=== PATIENT | female | born 1955 | race Caucasian/White ===

== ENCOUNTER → 2025-07-05 | Outpatient (CLI) | payer MEDICARE, OTHER, SELFPAY ==
[2025-07-05 09:58] LABS: Hematocrit 31.8 % (37-47); Hemoglobin 10.6 g/dL (12.0-15.0); Immature Granulocytes Count 0.010 X10^3/uL (0.0-0.0); Mean Corp Hgb Conc 33.3 g/dL (32-36); Mean Corpuscular Volume 88.6 fL (81-99); Mean Platelet Vol. 9.5 fl (6.2-12.0); NRBC Flagged by Analyzer 0 % (0-5); Platelet Count 208 K/mm3 (150-450); RBC Distribution Width CV 15.3 % (11.6-14.6); RBC Distribution Width SD 50.1 fl (35.1-43.9); Red Blood Count 3.59 M/mm3 (4.2-5.4); White Blood Count 6.4 K/mm3 (4.4-11.0)
[2025-07-05 10:54] LABS: AST(SGOT) 20 U/L (<=31); Alanine Aminotransfer ALT/SGPT 12 U/L (<=34); Albumin, Serum 4.7 g/dL (3.4-4.8); Alkaline Phosphatase 64 U/L (35-104); Anion Gap 15 (5-15); BUN 32 mg/dL (4-19); BUN/Creat Ratio 18.8 RATIO (10-20); Calcium,Total 9.8 mg/dL (7.6-11.0); Carbon Dioxide 23.8 mmol/L (21.0-32.0); Chloride 105 mmol/L (98-108); Cholesterol 254 mg/dL (<=200); Globulin 2.8 g/dL (2.2-4.2); Glucose 94 mg/dL (70-99); Low Density Lipoprotein Calc. 154 mg/dL; Potassium 3.7 mmol/L (3.3-5.1); Triglycerides 111 mg/dL; Very Low Density Lipoprotein 22 mg/dL (5-40); cholesterol:hdl ratio screen 3.26
== END | disposition home or self-care (01) ==
LOC: LAB 09:06
PROVIDERS: PCP Family Medicine; Referring Provider Family Medicine; Visit Provider Family Medicine
DX: I10 Essential (primary) hypertension (principal); E03.9 Hypothyroidism, unspecified; E78.5 Hyperlipidemia, unspecified
CPT/HCPCS: 36415; 80053; 80061; 84443; 85025

== ENCOUNTER → 2025-08-19 | Outpatient (CLI) | payer MEDICARE, OTHER, SELFPAY ==
[2025-08-19 10:19] LABS: Color, Urine Yellow (Yellow); Glucose, Dipstick Normal (Normal); Ketone-Dipstick Negative (Negative); Leukocyte Esterase-Dipstick Negative /ul (Negative); Nitrite-Dipstick Negative (Negative); Occult Blood-Urine 10 /ul (Negative); Protein-Dipstick 15 mg/dl (Negative); Specific Gravity, Urine 1.020 (1.002-1.030); Urine Bilirubin Dipstick Negative (Negative)
[2025-08-19 10:53] LABS: PTHIN 91 pg/mL (11-61)
[2025-08-19 11:11] LABS: Ferritin 630 ng/mL (22-378); Iron 60 ug/dL (50-170); Iron Binding Capacity,Unsat 166 ug/dL (228-428); Vitamin B12 1183 pg/mL (180-914); Vitamin D,25 Hydroxy 48.6 ng/mL (30-100)
[2025-08-19 11:25] LABS: Iron Binding Capacity,Total 226 ug/dL (250-450)
--- OUTSIDE RECORDS SUMMARY | 2025-08-19 11:29 | XMS RPT_ITS | CCD ---
Author Organization [facility] Care Team Providers Care Regulatory Affairs Analyst Name Role Phone Shanae BEAVER, Dr. Henderson Primary Care Provider [phone] Shanae BEAVER, Dr. Henderson Attending Provider [phone] Dr. Beatriz Jolly MD Referring Provider [phone] Beatriz Jolly Attending Unavailable Beatriz Jolly Referring Unavailable Beatriz Jolly Primary Care Unavailable Beatriz Jolly Attending Unavailable Beatriz Jolly Primary Care Unavailable Problems Problem Classification Problem Date Documented Da te Episodic/Chronic Essential hypertension (1 source) Essential (primary) hypertension; Translations: [Essential (primary) hypertension] Onset: 07-11-2025 Chronic Results Test Name Value Interpretation Reference Range Facility Absolute lymphocyte countOrd ered By: Beatriz Jolly on 07-05-2025 Lymphocytes Auto (Unsp spec) [#/Vol] 2.58 10*3/uL 0.83-4.51 [facility] Absolute neutrophil countOrd ered By: Beatriz Jolly on 07-05-2025 Neutrophils (Bld) [#/Vol] 3.2 10*3/uL 2.0-7.7 [facility] Anion gap in Serum or Plasma Ordered By: Beatriz Jolly on 07-05-2025 Anion gap [Moles/Vol] 15 mmol/L 5-15 [facility] Automated lymphocyte count a s percentage of total leukocytesOrdered By: Beatriz Jolly on 07-05-2025 Lymphocytes/100 WBC Auto (Unsp spec) 40.2 % 19-41 [facility] BUN/creatinine ratioOrdered By: Beatriz Jolly on 07-05-2025 Urea nitrogen/Creatinine [Mass ratio] 18.8 mg/mg 10-20 [facility] Basophil percentageOrdered B y: Beatriz Jolly on 07-05-2025 Basophils/100 WBC (Bld) 0.3 % 0-1 [facility] Bilirubin, totalOrdered By: Beatriz Jolly on 07-05-2025 Bilirubin [Mass/Vol] 0.41 mg/dL 0.00-1.30 [facility] CBC W/Diff, Automatedon 06-15 Absolute Lymph 2.58 X10 3/uL Normal 0.83-4.51 [facility] Comment on above: Performed By: #### L 500.4100, L100.0100, L501.9520, L500.4050 #### [facility] [address] [place], [address] Absolute Neut 3.2 X10 3/uL Normal 2.0-7.7 [facility] Comment on above: Performed By: #### L 500.4100, L100.0100, L501.9520, L500.4050 #### [facility] [address] [place], [address] Basophils/100 WBC (Bld) 0.3 % Normal 0-1 [facility] Comment on above: Performed By: #### L 500.4100, L100.0100, L501.9520, L500.4050 #### [facility] [address] [place], [address] Eosinophils/100 WBC (Bld) 2.8 % Normal 0-5 [facility] Comment on above: Performed By: #### L 500.4100, L100.0100, L501.9520, L500.4050 #### [facility] [address] [place], [address] Erythrocyte distribution width (RBC) [Ratio] 15.3 % High 11.6-14.6 [facility] Comment on above: Performed By: #### L 500.4100, L100.0100, L501.9520, L500.4050 #### [facility] [address] [place], [address] Hematocrit (Bld) [Volume fraction] 31.8 % Low 37-47 [facility] Comment on above: Performed By: #### L 500.4100, L100.0100, L501.9520, L500.4050 #### [facility] [address] [place], [address] Hemoglobin (Bld) [Mass/Vol] 10.6 g/dL Low 12.0-15.0 [facility] Comment on above: Performed By: #### L 500.4100, L100.0100, L501.9520, L500.4050 #### [facility] [address] [place], [address] IG% 0.200 Normal 0.0-0.9 [facility] Comment on above: Result Comment: IG% - Immature Granulocytes (promyelocytes, myelocytes and metamyelocytes) > 1% indicates that a LEFT SHIFT is Present. Performed By: #### L 500.4100, L100.0100, L501.9520, L500.4050 #### [facility] [address] [place], [address] Lymphocytes/100 WBC (Bld) 40.2 % Normal 19-41 [facility] Comment on above: Performed By: #### L 500.4100, L100.0100, L501.9520, L500.4050 #### [facility] [address] [place], [address] MCH (RBC) [Entitic mass] 29.5 pg Normal 27.0-32.0 [facility] Comment on above: Performed By: #### L 500.4100, L100.0100, L501.9520, L500.4050 #### [facility] [address] [place], [address] MCHC (RBC) [Mass/Vol] 33.3 g/dL Normal 32-36 [facility] Comment on above: Performed By: #### L 500.4100, L100.0100, L501.9520, L500.4050 #### [facility] [address] [place], [address] MCV (RBC) [Entitic vol] 88.6 fL Normal 81-99 [facility] Comment on above: Performed By: #### L 500.4100, L100.0100, L501.9520, L500.4050 #### [facility] [address] [place], [address] Monocytes/100 WBC (Bld) 6.6 % Normal 0-10 [facility] Comment on above: Performed By: #### L 500.4100, L100.0100, L501.9520, L500.4050 #### [facility] [address] [place], [address] Neutrophils/100 WBC (Bld) 49.9 % Normal 47-70 [facility] Comment on above: Performed By: #### L 500.4100, L100.0100, L501.9520, L500.4050 #### [facility] [address] [place], [address] Nucleated RBC (Bld) [#/Vol] 0 10*3/uL Normal 0-5 [facility] Comment on above: Performed By: #### L 500.4100, L100.0100, L501.9520, L500.4050 #### [facility] [address] [place], [address] Platelet mean volume (Bld) [Entitic vol] 9.5 fL Normal 6.2-12.0 [facility] Comment on above: Performed By: #### L 500.4100, L100.0100, L501.9520, L500.4050 #### [facility] [address] [place], [address] Platelets (Bld) [#/Vol] 208 10*3/uL Normal 150-450 [facility] Comment on above: Performed By: #### L 500.4100, L100.0100, L501.9520, L500.4050 #### [facility] [address] [place], [address] RBC (Bld) [#/Vol] 3.59 10*6/uL Low 4.2-5.4 [facility] Comment on above: Performed By: #### L 500.4100, L100.0100, L501.9520, L500.4050 #### [facility] [address] [place], [address] RDW SD 50.1 fl High 35.1-43.9 [facility] Comment on above: Performed By: #### L 500.4100, L100.0100, L501.9520, L500.4050 #### [facility] [address] [place], [address] WBC (Bld) [#/Vol] 6.4 10*3/uL Normal 4.4-11.0 [facility] Comment on above: Performed By: #### L 500.4100, L100.0100, L501.9520, L500.4050 #### [facility] [address] [place], [address] Calculated very low density lipoprotein (VLDL) cholesterol measurementOrdered By: Beatriz Jolly on 07-05-2025 Calculated very low density lipoprotein (VLDL) cholesterol measurement 22 mg/dL 5-40 [facility] Carbon dioxide, total [Moles /volume] in Central venous bloodOrdered By: Beatriz oJlly on 07-05-2025 CO2 [Moles/Vol] 23.8 mmol/L 21.0-32.0 [facility] Chloride assayOrdered By: Dale Jolly on 07-05-2025 Chloride [Moles/Vol] 105 mmol/L 98-108 [facility] Comprehensive Metabolic Prof ilon 07-05-2025 Albumin [Mass/Vol] 4.7 g/dL Normal 3.4-4.8 [facility] Comment on above: Performed By: #### L 500.4100, L100.0100, L501.9520, L500.4050 #### [facility] [address] [place], [address] Albumin/Globulin [Mass ratio] 1.7 {ratio} Normal 0.9-2.4 [facility] Comment on above: Performed By: #### L 500.4100, L100.0100, L501.9520, L500.4050 #### [facility] [address] [place], [address] ALK PHOS 64 U/L Normal 35-104 [facility] Comment on above: Performed By: #### L 500.4100, L100.0100, L501.9520, L500.4050 #### [facility] [address] [place], [address] ALT [Catalytic activity/Vol] 12 U/L Normal <=34 [facility] Comment on above: Performed By: #### L 500.4100, L100.0100, L501.9520, L500.4050 #### [facility] [address] [place], [address] AST [Catalytic activity/Vol] 20 U/L Normal <=31 [facility] Comment on above: Performed By: #### L 500.4100, L100.0100, L501.9520, L500.4050 #### [facility] [address] [place], [address] Bilirubin [Mass/Vol] 0.41 mg/dL Normal 0.00-1.30 [facility] Comment on above: Performed By: #### L 500.4100, L100.0100, L501.9520, L500.4050 #### [facility] [address] [place], [address] BUN/CRE 18.8 RATIO Normal 10-20 [facility] Comment on above: Performed By: #### L 500.4100, L100.0100, L501.9520, L500.4050 #### [facility] [address] [place], [address] Calcium [Mass/Vol] 9.8 mg/dL Normal 7.6-11.0 [facility] Comment on above: Performed By: #### L 500.4100, L100.0100, L501.9520, L500.4050 #### [facility] [address] [place], [address] Chloride [Moles/Vol] 105 mmol/L Normal 98-108 [facility] Comment on above: Performed By: #### L 500.4100, L100.0100, L501.9520, L500.4050 #### [facility] [address] [place], [address] CO2 [Moles/Vol] 23.8 mmol/L Normal 21.0-32.0 [facility] Comment on above: Performed By: #### L 500.4100, L100.0100, L501.9520, L500.4050 #### [facility] [address] [place], [address] Creatinine [Mass/Vol] 1.68 mg/dL High 0.70-1.20 [facility] Comment on above: Performed By: #### L 500.4100, L100.0100, L501.9520, L500.4050 #### [facility] [address] [place], [address] GAP 15 Normal 5-15 [facility] Comment on above: Performed By: #### L 500.4100, L100.0100, L501.9520, L500.4050 #### [facility] [address] [place], [address] GFR/1.73 sq M.predicted among non-blacks MDRD (S/P/Bld) [Vol rate/Area] 33 mL/min/{1.73_m2} Low >60 [facility] Comment on above: Result Comment: mL/m in/1.73m2 CKD-EPI Creatinine Equation (2020) Performed By: #### L 500.4100, L100.0100, L501.9520, L500.4050 #### [facility] [address] [place], [address] Globulin (S) [Mass/Vol] 2.8 g/dL Normal 2.2-4.2 [facility] Comment on above: Performed By: #### L 500.4100, L100.0100, L501.9520, L500.4050 #### [facility] [address] [place], [address] Glucose [Mass/Vol] 94 mg/dL Normal 70-99 [facility] Comment on above: Performed By: #### L 500.4100, L100.0100, L501.9520, L500.4050 #### [facility] [address] [place], [address] Potassium [Moles/Vol] 3.7 mmol/L Normal 3.3-5.1 [facility] Comment on above: Performed By: #### L 500.4100, L100.0100, L501.9520, L500.4050 #### [facility] [address] [place], [address] Sodium [Moles/Vol] 143 mmol/L Normal 133-145 [facility] Comment on above: Performed By: #### L 500.4100, L100.0100, L501.9520, L500.4050 #### [facility] [address] [place], [address] T PROT 7.5 g/dL Normal 5.9-8.4 [facility] Comment on above: Performed By: #### L 500.4100, L100.0100, L501.9520, L500.4050 #### [facility] [address] [place], [address] Urea nitrogen [Mass/Vol] 32 mg/dL High 4-19 [facility] Comment on above: Performed By: #### L 500.4100, L100.0100, L501.9520, L500.4050 #### [facility] [address] [place], [address] Eosinophil percentageOrdered By: Beatriz Jolly on 07-05-2025 Eosinophils/100 WBC (Bld) 2.8 % 0-5 [facility] Erythrocyte distribution wid th ratioOrdered By: Beatriz Jolly on 07-05-2025 Erythrocyte distribution width (RBC) [Ratio] 15.3 % High 11.6-14.6 [facility] Erythrocyte distribution wid th standard deviationOrdered By: Beatriz Jolly on 07-05-2025 Erythrocyte distribution width (RBC) [Ratio] 50.1 fl High 35.1-43.9 [facility] Glomerular filtration rate ( GFR) estimation/1.73 sq m using serum, plasma, or whole bOrdered By: Beatriz Jolly on 07-05-2025 GFR/1.73 sq M.predicted among non-blacks MDRD (S/P/Bld) [Vol rate/Area] 33 mL/min/{1.73_m2} Low >60 [facility] Comment on above: mL/min/1.73m2 CKD-EP I Creatinine Equation (2020) Hematocrit Auto (Bld) [Volum e fraction]Ordered By: Beatriz Jolly on 07-05-2025 Hematocrit (Bld) [Volume fraction] 31.8 % Low 37-47 [facility] Hemoglobin measurementOrdere d By: Beatriz Jolly on 07-05-2025 Hemoglobin (Bld) [Mass/Vol] 10.6 g/dL Low 12.0-15.0 [facility] Immature granulocytes/100 WB C Auto (Bld)Ordered By: Beatriz Jolly on 07-05-2025 Immature granulocytes/100 WBC (Bld) 0.200 % 0.0-0.9 [facility] Comment on above: IG% - Immature Granu locytes (promyelocytes, myelocytes and metamyelocytes) > 1% indicates that a LEFT SHIFT is Present. LDL calc ser/plasOrdered By: Beatriz Jolly on 07-05-2025 Cholesterol in LDL [Mass/Vol] 154 mg/dL [facility] Comment on above: Gvgoiqzavd=202-028 m g/dL & Higher Iggj=775 mg/dL or greaterFriedwald Equation for LDL-C Laboratory - Chemistry and C hemistry - challengeOrdered By: Beatriz Jolly on 07-05-2025 AST [Catalytic activity/Vol] 20 U/L <32 [facility] Lipid Profileon 07-05-2025 CHOL:HDL 3.26 Normal [facility] Comment on above: Performed By: #### L 500.4100, L100.0100, L501.9520, L500.4050 #### [facility] [address] [place], [address] Cholesterol [Mass/Vol] 254 mg/dL High <=200 [facility] Comment on above: Result Comment: Chol esterol level, Desirable <200 mg/dL Borderline high cholesterol 200-239 mg/dL High cholesterol >=240 mg/dL Recommendations of the NCEP Adult Treatment Panel for the following risk-cutoff thresholds for the [place] P[place] population. Performed By: #### L 500.4100, L100.0100, L501.9520, L500.4050 #### [facility] [address] [place], [address] Cholesterol in HDL [Mass/Vol] 78 mg/dL Normal [facility] Comment on above: Result Comment: Sola onal Cholesterol Education Program (NCEP) guidelines: <40 mg/dL: Low HDL-cholesterol (major risk factor for CHD) >= 60 mg/dL: High HDL-cholesterol (negative risk factor for CHD) HDL-cholesterol is affected by a number of factors, e.g. smoking, exercise, hormones, sex and age. Performed By: #### L 500.4100, L100.0100, L501.9520, L500.4050 #### [facility] [address] [place], [address] Cholesterol in LDL [Mass/Vol] 154 mg/dL Normal [facility] Comment on above: Result Comment: Bord vqcwug=548-266 mg/dL Higher Gicn=471 mg/dL or greater Friedwald Equation for LDL-C Performed By: #### L 500.4100, L100.0100, L501.9520, L500.4050 #### [facility] [address] [place], [address] Cholesterol in VLDL [Mass/Vol] 22 mg/dL Normal 5-40 [facility] Comment on above: Performed By: #### L 500.4100, L100.0100, L501.9520, L500.4050 #### [facility] [address] [place], [address] Triglyceride [Mass/Vol] 111 mg/dL Normal [facility] Comment on above: Result Comment: The drugs N-Acetylcysteine and Metamizole may falsely depress this assay. Normal range: <150 mg/dL Borderline High: 150-199 mg/dL High: 200-499 mg/dL Very High: >500 mg/dL Performed By: #### L 500.4100, L100.0100, L501.9520, L500.4050 #### [facility] [address] [place], [address] MCV (mean corpuscular volume ) determinationOrdered By: Beatriz Jolly on 07-05-2025 MCV (RBC) [Entitic vol] 88.6 fL 81-99 [facility] Mean corpuscular hemoglobin (MCH) determinationOrdered By: Beatriz Jolly on 07-05-2025 MCH (RBC) [Entitic mass] 29.5 pg 27.0-32.0 [facility] Mean corpuscular hemoglobin concentration (MCHC) determinationOrdered By: Beatriz Jolly on 07-05-2025 MCHC (RBC) [Mass/Vol] 33.3 g/dL 32-36 [facility] Mean platelet volume determi nationOrdered By: Beatriz Jolly on 07-05-2025 Platelet mean volume (Bld) [Entitic vol] 9.5 fL 6.2-12.0 [facility] Monocyte percentageOrdered B y: Beatriz Jolly on 07-05-2025 Monocytes/100 WBC (Bld) 6.6 % 0-10 [facility] Neutrophil percentageOrdered By: Beatriz Jolly on 07-05-2025 Neutrophils/100 WBC (Bld) 49.9 % 47-70 [facility] Nucleated red blood cell per centageOrdered By: Beatriz Jolly on 07-05-2025 Nucleated RBC/100 WBC (Bld) [Ratio] 0 % 0-5 [facility] Platelet countOrdered By: Dale Jolly on 07-05-2025 Platelets (Bld) [#/Vol] 208 10*3/uL 150-450 [facility] Potassium measurement (mass/ volume)Ordered By: Beatriz Jolly on 07-05-2025 Potassium (Unsp spec) [Mass/Vol] 3.7 mmol/L 3.3-5.1 [facility] RBC Auto (Bld) [#/Vol]Ordere d By: Beatriz Jolly on 07-05-2025 RBC (Bld) [#/Vol] 3.59 10*6/uL Low 4.2-5.4 [facility] Screening total cholesterol/ high density lipoprotein (HDL) cholesterol ratioOrdered By: Beatriz Jolly on 07-05-2025 Cholesterol.total/Choles terol in HDL [Mass ratio] 3.26 {ratio} [facility] Serum creatinine measurement (mass/volume)Ordered By: Beatriz Jolly on 07-05-2025 Creatinine [Mass/Vol] 1.68 mg/dL High 0.70-1.20 [facility] Serum globulin measurementOr dered By: Beatriz Jolly on 07-05-2025 Globulin (S) [Mass/Vol] 2.8 g/dL 2.2-4.2 [facility] Serum glucose measurement (m ass/volume)Ordered By: Beatriz Jolly on 07-05-2025 Glucose [Mass/Vol] 94 mg/dL 70-99 [facility] Serum or plasma alanine galaviz otransferase (ALT) measurementOrdered By: Beatriz Jolly on 07-05-2025 ALT [Catalytic activity/Vol] 12 U/L <35 [facility] Serum or plasma albumin sumit urement (mass/volume)Ordered By: Beatriz Jolly on 07-05-2025 Albumin [Mass/Vol] 4.7 g/dL 3.4-4.8 [facility] Serum or plasma albumin/glob ulin mass ratioOrdered By: Beatriz Jolly on 07-05-2025 Albumin/Globulin [Mass ratio] 1.7 {ratio} 0.9-2.4 [facility] Serum or plasma alkaline sravan sphatase measurementOrdered By: Beatriz Jolly on 07-05-2025 ALP [Catalytic activity/Vol] 64 U/L 35-104 [facility] Serum or plasma calcium sumit urement (mass/volume)Ordered By: Beatriz Jolly on 07-05-2025 Calcium [Mass/Vol] 9.8 mg/dL 7.6-11.0 [facility] Serum or plasma cholesterol in HDL measurement (mass/volume)Ordered By: Beatriz Jolly on 07-05-2025 Cholesterol in HDL [Mass/Vol] 78 mg/dL >40 [facility] Comment on above: National Cholesterol Education Program (NCEP) guidelines:<40 mg/dL: Low HDL-cholesterol (major risk factor for CHD)>= 60 mg/dL: High HDL-cholesterol (negative risk factor for CHD)HDL-cholesterol is affected by a number of factors, e.g. smoking, exercise, hormones, sex and age. Serum or plasma cholesterol measurement (mass/volume)Ordered By: Beatriz Jolly on 07-05-2025 Cholesterol [Mass/Vol] 254 mg/dL High <201 [facility] Comment on above: Cholesterol level, D esirable <200 mg/dLBorderline high cholesterol 200-239 mg/dLHigh cholesterol >=240 mg/dLRecommendations of the NCEP Adult Treatment Panel for the following risk-cutoff thresholds for the [place] population. Serum or plasma urea nitroge n measurement (mass/volume)Ordered By: Beatriz Jolly on 07-05-2025 Urea nitrogen [Mass/Vol] 32 mg/dL High 4-19 [facility] Sodium levelOrdered By: Shannon Jolly on 07-05-2025 Sodium [Moles/Vol] 143 mmol/L 133-145 [facility] TSH DL <= 0.005 mIU/L QnOrde red By: Beatriz Jolly on 07-05-2025 TSH Qn 0.145 uIU/mL Low 0.300-4.200 [facility] Thyroid Stim Hormone (TSH)on 07-05-2025 TSH 0.145 uIU/mL Low 0.300-4.200 [facility] Comment on above: Performed By: #### L 500.4100, L100.0100, L501.9520, L500.4050 #### [facility] [address] [place] [address]. [place], [address] Total proteinOrdered By: Sarkis Jolly on 07-05-2025 Protein [Mass/Vol] 7.5 g/dL 5.9-8.4 [facility] Triglycerides measurementOrd ered By: Beatriz Jolly on 07-05-2025 Triglyceride [Mass/Vol] 111 mg/dL <199 [facility] Comment on above: The drugs N-Acetylcy steine and Metamizole may falsely depress this assay. Normal range: <150 mg/dLBorderline High: 150-199 mg/dLHigh: 200-499 mg/dLVery High: >500 mg/dL White blood cell (WBC) count Ordered By: Beatriz Jolly on 07-05-2025 WBC (Bld) [#/Vol] 6.4 10*3/uL 4.4-11.0 [facility] Encounters Encounter Date Encounter Type Care Provider Facility Start: 07-10-2025 ambulatory Beatriz Jolly Facility: [facility] Start: 07-05-2025 End: 07-05-[address] Beatriz Jolly MD Work Phone: -Laboratory Start: 07-05-2025 End: 07-05-[address] Beatriz Jolly MD -Laboratory Work Phone: Start: 07-05-2025 End: 07-05-2025 ambulatory Beatriz Jolly Facility:[facility] Payers Date Payer Category Payer Medicare [id number] 2025 Private Health Insurance CLI [id number] 2025 Self-pay Unknown [id number] Unknown [id number] Social History Date Type Detail [facility] Work Phone: Start: 1955 Sex Assigned At Female [facility] Evaluation note Note Date & Type Note Facility Evaluation note No assessment information availa ble [facility] Work Phone: Reason for referral (narrative) Note Date & Type Note Facility Reason for referral (narrative) No reason for referral information available [facility] Work Phone: Summary Purpose Family History No Family History Records Found Advance Directives No Advanced Directives Records Found Additional Source Comments Care Teams (unrecognized sec tion and content) Team Status: Active Member Role/Relationship Status Dates Dr. Beatriz Jolly MD Primary Care Provider Active Team Status: Inactive Member Role/Relationship Status Dates Dr. Beatriz Jolly MD Primary Care Provider Active Start: July 05, 2025 End: July 05, 2025 Dr. Beatriz Jolly MD Attending Provider Active Start: July 05, 2025 End: July 05, 2025 Dr. Beatriz Jolly MD Referring Provider Active Start: July 05, 2025 End: July 05, 2025 Goals (unrecognized section and content) Goals may be documented in a n alternate section INFORMATION SOURCE (unrecogn ized section and content) DATE CREATED AUTHOR 07/12/2025 [facility] FOR RECORDS PERTAINING TO PATIENTS WHO ARE OR HAVE BEEN ENROLLED IN A CHEMICAL DEPENDENCY/SUBSTANCEABUSE PROGRAM, SOME INFORMATION MAY BE OMITTED. This clinical summary was aggregated from multiple sources. Caution should be exercised in using it in the provision of clinical care. This summary normalizes information from multiple sources, and as a consequence, information in this document may materially change the coding, format and clinical context of patient data. In addition, data may be omitted in some cases. CLINICAL DECISIONS SHOULD BE BASED ON THE PRIMARY CLINICAL RECORDS. [facility] PPT [employer] provides no warranty or guarantee of the accuracy or completeness of information in this document.
--- OUTSIDE RECORDS SUMMARY | 2025-08-19 11:29 | XMS RPT_ITS | CCD ---
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 Henderson Primary Care Provider [phone] Shanae BEAVER, Dr. Henderson Attending Provider [phone] [...] Auto (Unsp spec) [#/Vol] 2.58 10*3/uL 0.83-4.51 [facility] Absolute neutrophil countOrd ered By: Beatriz Jolly on 07-05-2025 Neutrophils (Bld) [#/Vol] 3.2 10*3/uL 2.0-7.7 [facility] Anion gap in Serum or Plasma Ordered By: Beatriz Jolly on 07-05-2025 Anion gap [Moles/Vol] 15 mmol/L 5-15 [facility] Automated lymphocyte count a s percentage of total leukocytesOrdered By: Beatriz Jolly on 07-05-2025 Lymphocytes/100 WBC Auto (Unsp spec) 40.2 % 19-41 [facility] BUN/creatinine ratioOrdered By: Beatriz Jolly on 07-05-2025 Urea nitrogen/Creatinine [Mass ratio] 18.8 mg/mg 10-20 [facility] Basophil percentageOrdered B y: Beatriz Jolly on 07-05-2025 Basophils/100 WBC (Bld) 0.3 % 0-1 [facility] Bilirubin, totalOrdered By: Beatriz Jolly on 07-05-2025 Bilirubin [Mass/Vol] 0.41 mg/dL 0.00-1.30 [facility] CBC W/Diff, Automatedon 06-15 Absolute Lymph 2.58 X10 3/uL Normal 0.83-4.51 [facility] Comment on above: Performed By: #### L 500.4100, L100.0100, L501.9520, L500.4050 #### [facility] [address] [place], [address] Absolute Neut 3.2 X10 3/uL Normal 2.0-7.7 [facility] Comment on above: Performed By: #### L 500.4100, L100.0100, L501.9520, L500.4050 #### [facility] [address] [place], [address] Basophils/100 WBC (Bld) 0.3 % Normal 0-1 [facility] Comment on above: Performed By: #### L 500.4100, L100.0100, L501.9520, L500.4050 #### [facility] [address] [place], [address] Eosinophils/100 WBC (Bld) 2.8 % Normal 0-5 [facility] Comment on above: Performed By: #### L 500.4100, L100.0100, L501.9520, L500.4050 #### [facility] [address] [place], [address] Erythrocyte distribution width (RBC) [Ratio] 15.3 % High 11.6-14.6 [facility] Comment on above: Performed By: #### L 500.4100, L100.0100, L501.9520, L500.4050 #### [facility] [address] [place], [address] Hematocrit (Bld) [Volume fraction] 31.8 % Low 37-47 [facility] Comment on above: Performed By: #### L 500.4100, L100.0100, L501.9520, L500.4050 #### [facility] [address] [place], [address] Hemoglobin (Bld) [Mass/Vol] 10.6 g/dL Low 12.0-15.0 [facility] Comment on above: Performed By: #### L 500.4100, L100.0100, L501.9520, L500.4050 #### [facility] [address] [place], [address] IG% 0.200 Normal 0.0-0.9 [facility] Comment on above: Result Comment: IG% - Immature Granulocytes (promyelocytes, myelocytes and metamyelocytes) > 1% indicates that a LEFT SHIFT is Present. Performed By: #### L 500.4100, L100.0100, L501.9520, L500.4050 #### [facility] [address] [place], [address] Lymphocytes/100 WBC (Bld) 40.2 % Normal 19-41 [facility] Comment on above: Performed By: #### L 500.4100, L100.0100, L501.9520, L500.4050 #### [facility] [address] [place], [address] MCH (RBC) [Entitic mass] 29.5 pg Normal 27.0-32.0 [facility] Comment on above: Performed By: #### L 500.4100, L100.0100, L501.9520, L500.4050 #### [facility] [address] [place], [address] MCHC (RBC) [Mass/Vol] 33.3 g/dL Normal 32-36 [facility] Comment on above: Performed By: #### L 500.4100, L100.0100, L501.9520, L500.4050 #### [facility] [address] [place], [address] MCV (RBC) [Entitic vol] 88.6 fL Normal 81-99 [facility] Comment on above: Performed By: #### L 500.4100, L100.0100, L501.9520, L500.4050 #### [facility] [address] [place], [address] Monocytes/100 WBC (Bld) 6.6 % Normal 0-10 [facility] Comment on above: Performed By: #### L 500.4100, L100.0100, L501.9520, L500.4050 #### [facility] [address] [place], [address] Neutrophils/100 WBC (Bld) 49.9 % Normal 47-70 [facility] Comment on above: Performed By: #### L 500.4100, L100.0100, L501.9520, L500.4050 #### [facility] [address] [place], [address] Nucleated RBC (Bld) [#/Vol] 0 10*3/uL Normal 0-5 [facility] Comment on above: Performed By: #### L 500.4100, L100.0100, L501.9520, L500.4050 #### [facility] [address] [place], [address] Platelet mean volume (Bld) [Entitic vol] 9.5 fL Normal 6.2-12.0 [facility] Comment on above: Performed By: #### L 500.4100, L100.0100, L501.9520, L500.4050 #### [facility] [address] [place], [address] Platelets (Bld) [#/Vol] 208 10*3/uL Normal 150-450 [facility] Comment on above: Performed By: #### L 500.4100, L100.0100, L501.9520, L500.4050 #### [facility] [address] [place], [address] RBC (Bld) [#/Vol] 3.59 10*6/uL Low 4.2-5.4 [facility] Comment on above: Performed By: #### L 500.4100, L100.0100, L501.9520, L500.4050 #### [facility] [address] [place], [address] RDW SD 50.1 fl High 35.1-43.9 [facility] Comment on above: Performed By: #### L 500.4100, L100.0100, L501.9520, L500.4050 #### [facility] [address] [place], [address] WBC (Bld) [#/Vol] 6.4 10*3/uL Normal 4.4-11.0 [facility] Comment on above: Performed By: #### L 500.4100, L100.0100, L501.9520, L500.4050 #### [facility] [address] [place], [address] Calculated very low density lipoprotein (VLDL) cholesterol measurementOrdered By: Beatriz Jolly on 07-05-2025 Calculated very low density lipoprotein (VLDL) cholesterol measurement 22 mg/dL 5-40 [facility] Carbon dioxide, total [Moles /volume] in Central venous bloodOrdered By: Beatriz Jolly on 07-05-2025 CO2 [Moles/Vol] 23.8 mmol/L 21.0-32.0 [facility] Chloride assayOrdered By: Dale Jolly on 07-05-2025 Chloride [Moles/Vol] 105 mmol/L 98-108 [facility] Comprehensive Metabolic Prof ilon 07-05-2025 Albumin [Mass/Vol] 4.7 g/dL Normal 3.4-4.8 [facility] Comment on above: Performed By: #### L 500.4100, L100.0100, L501.9520, L500.4050 #### [facility] [address] [place], [address] Albumin/Globulin [Mass ratio] 1.7 {ratio} Normal 0.9-2.4 [facility] Comment on above: Performed By: #### L 500.4100, L100.0100, L501.9520, L500.4050 #### [facility] [address] [place], [address] ALK PHOS 64 U/L Normal 35-104 [facility] Comment on above: Performed By: #### L 500.4100, L100.0100, L501.9520, L500.4050 #### [facility] [address] [place], [address] ALT [Catalytic activity/Vol] 12 U/L Normal <=34 [facility] Comment on above: Performed By: #### L 500.4100, L100.0100, L501.9520, L500.4050 #### [facility] [address] [place], [address] AST [Catalytic activity/Vol] 20 U/L Normal <=31 [facility] Comment on above: Performed By: #### L 500.4100, L100.0100, L501.9520, L500.4050 #### [facility] [address] [place], [address] Bilirubin [Mass/Vol] 0.41 mg/dL Normal 0.00-1.30 [facility] Comment on above: Performed By: #### L 500.4100, L100.0100, L501.9520, L500.4050 #### [facility] [address] [place], [address] BUN/CRE 18.8 RATIO Normal 10-20 [facility] Comment on above: Performed By: #### L 500.4100, L100.0100, L501.9520, L500.4050 #### [facility] [address] [place], [address] Calcium [Mass/Vol] 9.8 mg/dL Normal 7.6-11.0 [facility] Comment on above: Performed By: #### L 500.4100, L100.0100, L501.9520, L500.4050 #### [facility] [address] [place], [address] Chloride [Moles/Vol] 105 mmol/L Normal 98-108 [facility] Comment on above: Performed By: #### L 500.4100, L100.0100, L501.9520, L500.4050 #### [facility] [address] [place], [address] CO2 [Moles/Vol] 23.8 mmol/L Normal 21.0-32.0 [facility] Comment on above: Performed By: #### L 500.4100, L100.0100, L501.9520, L500.4050 #### [facility] [address] [place], [address] Creatinine [Mass/Vol] 1.68 mg/dL High 0.70-1.20 [facility] Comment on above: Performed By: #### L 500.4100, L100.0100, L501.9520, L500.4050 #### [facility] [address] [place], [address] GAP 15 Normal 5-15 [facility] Comment on above: Performed By: #### L 500.4100, L100.0100, L501.9520, L500.4050 #### [facility] [address] [place], [address] GFR/1.73 sq M.predicted among non-blacks MDRD (S/P/Bld) [Vol rate/Area] 33 mL/min/{1.73_m2} Low >60 [facility] Comment on above: Result Comment: mL/m in/1.73m2 CKD-EPI Creatinine Equation (2020) Performed By: #### L 500.4100, L100.0100, L501.9520, L500.4050 #### [facility] [address] [place], [address] Globulin (S) [Mass/Vol] 2.8 g/dL Normal 2.2-4.2 [facility] Comment on above: Performed By: #### L 500.4100, L100.0100, L501.9520, L500.4050 #### [facility] [address] [place], [address] Glucose [Mass/Vol] 94 mg/dL Normal 70-99 [facility] Comment on above: Performed By: #### L 500.4100, L100.0100, L501.9520, L500.4050 #### [facility] [address] [place], [address] Potassium [Moles/Vol] 3.7 mmol/L Normal 3.3-5.1 [facility] Comment on above: Performed By: #### L 500.4100, L100.0100, L501.9520, L500.4050 #### [facility] [address] [place], [address] Sodium [Moles/Vol] 143 mmol/L Normal 133-145 [facility] Comment on above: Performed By: #### L 500.4100, L100.0100, L501.9520, L500.4050 #### [facility] [address] [place], [address] T PROT 7.5 g/dL Normal 5.9-8.4 [facility] Comment on above: Performed By: #### L 500.4100, L100.0100, L501.9520, L500.4050 #### [facility] [address] [place], [address] Urea nitrogen [Mass/Vol] 32 mg/dL High 4-19 [facility] Comment on above: Performed By: #### L 500.4100, L100.0100, L501.9520, L500.4050 #### [facility] [address] [place], [address] Eosinophil percentageOrdered By: Beatriz Jolly on 07-05-2025 Eosinophils/100 WBC (Bld) 2.8 % 0-5 [facility] Erythrocyte distribution wid th ratioOrdered By: Beatriz Jolly on 07-05-2025 Erythrocyte distribution width (RBC) [Ratio] 15.3 % High 11.6-14.6 [facility] Erythrocyte distribution wid th standard deviationOrdered By: Beatriz Jolly on 07-05-2025 Erythrocyte distribution width (RBC) [Ratio] 50.1 fl High 35.1-43.9 [facility] Glomerular filtration rate ( GFR) estimation/1.73 sq m using serum, plasma, or whole bOrdered By: Beatriz Jolly on 07-05-2025 GFR/1.73 sq M.predicted among non-blacks MDRD (S/P/Bld) [Vol rate/Area] 33 mL/min/{1.73_m2} Low >60 [facility] Comment on above: mL/min/1.73m2 CKD-EP I Creatinine Equation (2020) Hematocrit Auto (Bld) [Volum e fraction]Ordered By: Beatriz Jolly on 07-05-2025 Hematocrit (Bld) [Volume fraction] 31.8 % Low 37-47 [facility] Hemoglobin measurementOrdere d By: Beatriz Jolly on 07-05-2025 Hemoglobin (Bld) [Mass/Vol] 10.6 g/dL Low 12.0-15.0 [facility] Immature granulocytes/100 WB C Auto (Bld)Ordered By: Beatriz Jolly on 07-05-2025 Immature granulocytes/100 WBC (Bld) 0.200 % 0.0-0.9 [facility] Comment on above: IG% - Immature Granu locytes (promyelocytes, myelocytes and metamyelocytes) > 1% indicates that a LEFT SHIFT is Present. LDL calc ser/plasOrdered By: Beatriz Jolly on 07-05-2025 Cholesterol in LDL [Mass/Vol] 154 mg/dL [facility] Comment on above: Mtyvvhowcd=433-571 m g/dL & Higher Geyw=690 mg/dL or greaterFriedwald Equation for LDL-C Laboratory - Chemistry and C hemistry - challengeOrdered By: Beatriz Jolly on 07-05-2025 AST [Catalytic activity/Vol] 20 U/L <32 [facility] Lipid Profileon 07-05-2025 CHOL:HDL 3.26 Normal [facility] Comment on above: Performed By: #### L 500.4100, L100.0100, L501.9520, L500.4050 #### [facility] [address] [place], [address] Cholesterol [Mass/Vol] 254 mg/dL High <=200 [facility] Comment on above: Result Comment: Chol esterol level, Desirable <200 mg/dL Borderline high cholesterol 200-239 mg/dL High cholesterol >=240 mg/dL Recommendations of the NCEP Adult Treatment Panel for the following risk-cutoff thresholds for the [place] population. Performed By: #### L 500.4100, L100.0100, L501.9520, L500.4050 #### [facility] [address] [place], [address] Cholesterol in HDL [Mass/Vol] 78 mg/dL Normal [facility] Comment on above: Result Comment: [place] onal Cholesterol Education Program (NCEP) guidelines: <40 mg/dL: Low HDL-cholesterol (major risk factor for CHD) >= 60 mg/dL: High HDL-cholesterol (negative risk factor for CHD) HDL-cholesterol is affected by a number of factors, e.g. smoking, exercise, hormones, sex and age. Performed By: #### L 500.4100, L100.0100, L501.9520, L500.4050 #### [facility] [address] [place], [address] Cholesterol in LDL [Mass/Vol] 154 mg/dL Normal [facility] Comment on above: Result Comment: Bord xodoot=846-629 mg/dL Higher Bzkb=199 mg/dL or greater Friedwald Equation for LDL-C Performed By: #### L 500.4100, L100.0100, L501.9520, L500.4050 #### [facility] [address] [place], [address] Cholesterol in VLDL [Mass/Vol] 22 mg/dL Normal 5-40 [facility] Comment on above: Performed By: #### L 500.4100, L100.0100, L501.9520, L500.4050 #### [facility] [address] [place], [address] Triglyceride [Mass/Vol] 111 mg/dL Normal [facility] Comment on above: Result Comment: The drugs N-Acetylcysteine and Metamizole may falsely depress this assay. Normal range: <150 mg/dL Borderline High: 150-199 mg/dL High: 200-499 mg/dL Very High: >500 mg/dL Performed By: #### L 500.4100, L100.0100, L501.9520, L500.4050 #### [facility] [address] [place], [address] MCV (mean corpuscular volume ) determinationOrdered By: Beatriz Jolly on 07-05-2025 MCV (RBC) [Entitic vol] 88.6 fL 81-99 [facility] Mean corpuscular hemoglobin (MCH) determinationOrdered By: Beatriz Jolly on 07-05-2025 MCH (RBC) [Entitic mass] 29.5 pg 27.0-32.0 [facility] Mean corpuscular hemoglobin concentration (MCHC) determinationOrdered By: Beatriz Jolly on 07-05-2025 MCHC (RBC) [Mass/Vol] 33.3 g/dL 32-36 [facility] Mean platelet volume determi nationOrdered By: Beatriz Jolly on 07-05-2025 Platelet mean volume (Bld) [Entitic vol] 9.5 fL 6.2-12.0 [facility] Monocyte percentageOrdered B y: Beatriz Jolly on 07-05-2025 Monocytes/100 WBC (Bld) 6.6 % 0-10 [facility] Neutrophil percentageOrdered By: Beatriz Jolly on 07-05-2025 Neutrophils/100 WBC (Bld) 49.9 % 47-70 [facility] Nucleated red blood cell per centageOrdered By: Beatriz Jolly on 07-05-2025 Nucleated RBC/100 WBC (Bld) [Ratio] 0 % 0-5 [facility] Platelet countOrdered By: aDle Jolly on 07-05-2025 Platelets (Bld) [#/Vol] 208 10*3/uL 150-450 [facility] Potassium measurement (mass/ volume)Ordered By: Beatriz Jolly on 07-05-2025 Potassium (Unsp spec) [Mass/Vol] 3.7 mmol/L 3.3-5.1 [facility] RBC Auto (Bld) [#/Vol]Ordere d By: Beatriz Jolly on 07-05-2025 RBC (Bld) [#/Vol] 3.59 10*6/uL Low 4.2-5.4 [facility] Screening total cholesterol/ high density lipoprotein (HDL) cholesterol ratioOrdered By: Beatriz Jolly on 07-05-2025 Cholesterol.total/Choles terol in HDL [Mass ratio] 3.26 {ratio} [facility] Serum creatinine measurement (mass/volume)Ordered By: Beatriz Jolly on 07-05-2025 Creatinine [Mass/Vol] 1.68 mg/dL High 0.70-1.20 [facility] Serum globulin measurementOr dered By: Beatriz Jolly on 07-05-2025 Globulin (S) [Mass/Vol] 2.8 g/dL 2.2-4.2 [facility] Serum glucose measurement (m ass/volume)Ordered By: Beatriz Jolly on 07-05-2025 Glucose [Mass/Vol] 94 mg/dL 70-99 [facility] Serum or plasma alanine galaviz otransferase (ALT) measurementOrdered By: Beatriz Jolly on 07-05-2025 ALT [Catalytic activity/Vol] 12 U/L <35 [facility] Serum or plasma albumin sumit urement (mass/volume)Ordered By: Beatriz Jolly on 07-05-2025 Albumin [Mass/Vol] 4.7 g/dL 3.4-4.8 [facility] Serum or plasma albumin/glob ulin mass ratioOrdered By: Beatriz Jolly on 07-05-2025 Albumin/Globulin [Mass ratio] 1.7 {ratio} 0.9-2.4 [facility] Serum or plasma alkaline sravan sphatase measurementOrdered By: Beatriz Jolly on 07-05-2025 ALP [Catalytic activity/Vol] 64 U/L 35-104 [facility] Serum or plasma calcium sumit urement (mass/volume)Ordered By: Beatriz Jolly on 07-05-2025 Calcium [Mass/Vol] 9.8 mg/dL 7.6-11.0 [facility] Serum or plasma cholesterol in HDL measurement (mass/volume)Ordered By: Beatriz Jolly on 07-05-2025 Cholesterol in HDL [Mass/Vol] 78 mg/dL >40 [facility] Comment on above: National Cholesterol Education Program (NCEP) guidelines:<40 mg/dL: Low HDL-cholesterol (major risk factor for CHD)>= 60 mg/dL: High HDL-cholesterol (negative risk factor for CHD)HDL-cholesterol is affected by a number of factors, e.g. smoking, exercise, hormones, sex and age. Serum or plasma cholesterol measurement (mass/volume)Ordered By: Beatriz Jolly on 07-05-2025 Cholesterol [Mass/Vol] 254 mg/dL High <201 [facility] Comment on above: Cholesterol level, D esirable <200 mg/dLBorderline high cholesterol 200-239 mg/dLHigh cholesterol >=240 mg/dLRecommendations of the NCEP Adult Treatment Panel for the following risk-cutoff thresholds for the [place] population. Serum or plasma urea nitroge n measurement (mass/volume)Ordered By: Beatriz Jolly on 07-05-2025 Urea nitrogen [Mass/Vol] 32 mg/dL High 4-19 [facility] Sodium levelOrdered By: Shannon Jolly on 07-05-2025 Sodium [Moles/Vol] 143 mmol/L 133-145 [facility] TSH DL <= 0.005 mIU/L QnOrde red By: Beatriz Jolly on 07-05-2025 TSH Qn 0.145 uIU/mL Low 0.300-4.200 [facility] Thyroid Stim Hormone (TSH)on 07-05-2025 TSH 0.145 uIU/mL Low 0.300-4.200 [facility] Comment on above: Performed By: #### L 500.4100, L100.0100, L501.9520, L500.4050 #### [facility] [address] [place] [address]. [place], [address] Total proteinOrdered By: Sarkis Jolly on 07-05-2025 Protein [Mass/Vol] 7.5 g/dL 5.9-8.4 [facility] Triglycerides measurementOrd ered By: Beatriz Jolly on 07-05-2025 Triglyceride [Mass/Vol] 111 mg/dL <199 [facility] Comment on above: The drugs N-Acetylcy steine and Metamizole may falsely depress this assay. Normal range: <150 mg/dLBorderline High: 150-199 mg/dLHigh: 200-499 mg/dLVery High: >500 mg/dL White blood cell (WBC) count Ordered By: Beatriz Jolly on 07-05-2025 WBC (Bld) [#/Vol] 6.4 10*3/uL 4.4-11.0 [facility] Encounters Encounter Date Encounter Type Care Provider Facility Start: 07-10-2025 ambulatory Beatriz Jolly Facility: [facility] Start: 07-05-2025 End: 07-05-[address] Beatriz Jolly MD Work Phone: -Laboratory Start: 07-05-2025 End: 07-05-[address] Beatriz Jolly MD -Laboratory Work Phone: Start: 07-05-2025 End: 07-05-2025 ambulatory Beatriz Jolly Facility:[facility] Payers Date Payer Category Payer Medicare [id number] 2025 Private Health Insurance CLI [id number] 2025 Self-pay Unknown [id number] Unknown [id number] Social History Date Type [facility]ail [facility] Work Phone: Start: 1955 Sex Assigned At Female [facility] Evaluation note Note Date & Type Note Facility Evaluation note No assessment information availa ble [facility] Work Phone: Reason for referral (narrative) Note Date & Type Note Facility Reason for referral (narrative) No reason for referral information available [facility] Work Phone: Summary Purpose Family History [...] section and content) DATE CREATED AUTHOR 07/12/2025 [facility] [place] FOR RECORDS PERTAINING TO PATIENTS WHO ARE [...] BE BASED ON THE PRIMARY CLINICAL RECORDS. [employer] provides no warranty or guarantee of the accuracy or completeness of information in this document.
[2025-08-19 11:39] LABS: FOLATES,SERUM (FOLIC ACID) 35.00 ng/mL (4.60-34.80)
[2025-08-21 15:08] LABS: Albumin 4.0 g/dL (2.9-4.4); Gamma Globulin 1.0 g/dL (0.4-1.8); IMMUNOFIXATION RESULT,S Comment: (.); Immunoglobulin A 70 mg/dL (87-352); Immunoglobulin G 972 mg/dL (586-1602); Immunoglobulin M 142 mg/dL (26-217); PROEL- TOTAL PROTEIN 6.9 g/dL (6.0-8.5); PROELU- Albumin, Urine 16.4 % (.); PROELU- Alpha-1-Globulin,Ur 6.4 % (.); PROELU- Alpha-2-Globulin,Ur 27.6 % (.); PROELU- Beta Globulin, Ur 30.3 % (.); PROELU- Gamma Globulin, Ur 19.2 % (.); Total Protein, Ur 12.1 mg/dL (Not Estab.)
[2025-08-22 07:07] LABS: Beta-2-Microglobulin, S 4.2 mg/L (0.6-2.4)
== END | disposition home or self-care (01) ==
LOC: LAB 09:45
PROVIDERS: PCP Family Medicine; Referring Provider Family Medicine; Visit Provider Family Medicine
DX: N18.32 Chronic kidney disease, stage 3b (principal); E03.9 Hypothyroidism, unspecified; D64.9 Anemia, unspecified
CPT/HCPCS: 36415; 81002; 82232; 82306; 82607; 82728; 82746; 82784; 83540; 83550; 83970; 84165; 84166; 86334

== ENCOUNTER → 2025-11-01 | Outpatient (CLI) | payer OTHER, MEDICARE, SELFPAY ==
--- OUTSIDE RECORDS SUMMARY | 2025-11-01 14:00 | XMS RPT_ITS | CCD ---
Author Organization [facility] Care Team Providers Care Dj Instructor Name Role Phone Shanae BEAVER, Dr. Henderson Primary Care Provider [phone] Shanae BEAVER, Dr. Henderson Attending Provider [phone] Dr. Beatriz Jolly MD Referring Provider [phone] Unavailable Primary Care Provider UnavailBeatriz Guido Primary Care Unavailable Beatriz Jolly Attending Unavailable Beatriz Jolly Primary Care Unavailable Beatriz Jolly Referring Unavailable Beatriz Jolly Attending Unavailable Beatriz Jolly Attending Unavailable Beatriz Jolly Primary Care Unavailable Beatriz Jolly Referring Unavailable ELIAS VARMA Attending Unavailable ABDULKADIR LUNA Referring Unavailable Medications Current Medications Medication Drug Class(es) Dates Sig (Normalized) Sig (Original) levothyroxine sodium 0.025 mg oral tablet (1 source) l-Thyroxine levothyroxine (Synthroid, Levoxyl) 25 MCG tablet Take by mouth every morning (before breakfast). Active sertraline 100 mg oral tablet (1 source) Serotonin Reuptake Inhibitor sertraline (Zoloft) 100 MG tablet Active 24 hr trandolapril 1 mg / verapamil hydrochloride 240 mg extended release oral tablet (1 source) Angiotensin Converting Enzyme Inhibitor, Calcium Channel Don Start: 09-16-2025 trandolapril-verapa mil CR (Tarka) 1-240 MG ER tablet 09/16/2025 Active Problems Problem Classification Problem Date Documented Da te Episodic/Chronic Acquired foot deformities (3 sources) Toe joint rigid; Translations: [Hallux rigidus, left foot] Onset: 09-18-2025 09-18-2025 Chronic Acquired foot deformities (3 sources) Tailor's bunion of left foot; Translations: [Bunionette of left foot] Onset: 09-18-2025 09-18-2025 Episodic Chronic kidney disease (1 source) Chronic kidney disease; Translations: [Chronic kidney disease, stage 3b] Onset: 09-06-2025 Essential hypertension (1 source) Essential (primary) hypertension; Translations: [Essential (primary) hypertension] Onset: 07-11-2025 Chronic Other connective tissue disease (1 source) Pain in left foot; Translations: [Pain in left foot] 09-03-2025 Episodic Other connective tissue disease (2 sources) Pain in left foot; Translations: [Pain in left foot] Onset: 09-18-2025 Episodic Results Test Name Value Interpretation Reference Range Facility Progress Noteon 09-23-2025 Progress Note CD UPLOADED, IMAGES IN [facility] MRI 12/24/20 LOWER EXT ANKLE Disc is in [place] storage to give back to patient [facility] 36on 09-19-2025 36 LVM and MCM for marcellus ent to call back with PCP name/number [facility] 36on 09-18-2025 36 Racquel chose to sche dule sx for November while in office. Please send surgery instructions. Thank you! [facility] Office Visiton 09-18-2025 Follow-up visit [id number] Moralez 1955 F Date Provider Department Center 09/18/2025 [id number]-ZEYPLELIAS VARMA [facility] OR None No family history on file Level of Service:95178 OK OFFICE/OUTPATIENT NEW MODERATE MDM 45 MINUTES Reason for Visit and Comments: New Patient [542] - Left foot Normal [facility] Progress Noteon 09-18-2025 Progress Note [facility] [place] [address] [place] [address] [address] [facility] [address] Dept: [phone] Dept Fern Schulte 1955 [id number] 09/18/2025 HISTORY OF PRESENT ILLNESS: Fern is a 70 y.o. female here today for evaluation of her left foot Fern states the problem has been present for several years Fern states the problem started gradually with no injuries occurring. She reports a history of CP with her left side being affected. She had surgery to correct her bunion in the . She has had increased pain lately as well as rubbing in the shoe. She states that she has to wear many shoes because women shoes are too narrow and cause pain. She is having pain both over her great toe and her fifth toe. Fren has tried or has been treated with the following: modifying her activity level and avoiding those activities which aggravate the problem, NSAID's, and surgery. Review of Systems Surgical Risk Factors: Allergies to Metals or Latex: NO Have you been treated for a blood clot: NO Have you had a history of bleeding disorder: NO Have you had a history of Anesthetic problems: NO Do you have tendency to bruise easily: NO Do you experience prolonged or excessive bleeding from cuts or after surgery: NO General/Constitutional: General: no Cancer: NO Acute/Chronic Infections: NO HEENT/Neck: Problems with theThroat: NO Problems with the Eyes: NO Problems with the Ears: NO Problems with the Nose and Sinuses: NO Endocrine: Problems with Diabetes: NO Problems with Thyroid Disorder: NO Thorax: Problems with the Heart: NO Problems with the Lung: no Cardiovascular: Problems with Circulation: NO Problems with High Blood pressure: NO Gastrointestinal: Problems with Ulcers: NO Problems with the Liver: no Problems with Bowel Habits: NO Genitourinary: Problems with the Genitals: NO Urinary problems: NO Kidney disease or stones: NO Skin: Any general problems: NO Neurologic: Dizziness, blurred vision, headaches, problems with balance : NO Seizures or Stroke: NO Psychiatric: Emotional or Psychological disorders: NO Depression or Anxiety: no PAST MEDICAL HISTORY: Medical History[1] Allergies[2] PHYSICAL EXAM: Ht 1.676 m (5' 6) Wt 83.9 kg (185 lb) BMI 29.86 kg/m? This is an age appropriate appearing female who is alert and oriented x 3. The patient appears well nourished. Psychiatric: The patient is able to verbalize normally and seems to have a good understanding of her situation. left lower extremity examination Lymphatic System: Swelling overlying the first metatarsophalangeal joint and the lateral forefoot Vascular: Dorsalis pedis pulse: 2+ Posterior tibial pulse: 2+ Capillary refill is less than 3 seconds Skin/nails: Normal appearance, warm and dry Hair growth absent on foot and toes Neurologic: Sensation intact to light touch throughout the foot and the ankle Musculoskeletal: The calf is nontender to palpation. ROM: Decreased range of motion of the first metatarsophalangeal joint Muscle strength testing: Anterior tibialis: 5/5 Posterior tibialis: 5/5 Peroneus brevis: 5/5 Peroneus longus: 5/5 Gastrocsoleus: 5/5 Tenderness: Tender to palpation overlying the first metatarsophalangeal joint. Spurs are palpable overlying the first metatarsophalangeal joint. Tender to palpation overlying the fifth metatarsal head over the plantar lateral aspect of the metatarsal. 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 There is a K wire within the head of the first metatarsal from previous osteotomy. The first metatarsophalangeal joint is in valgus alignment. Bunionette deformity of the fifth ray is also seen with overlying soft tissue swelling. Mild midfoot arthritis is also present. REVIEW OF RELATED PREVIOUS DOCUMENTATION: MRI report of the left ankle from 2020 was reviewed. LABORATORY RESULT INTERPRETATION: No labs were reviewed/No labs available for review DIAGNOSIS: Diagnosis Plan 1. Hallux rigidus of left foot 2. Bunionette of left foot MEDICAL DECISION MAKING: I had a discussion with Fern to make sure she has a good understanding of the diagnoses/issues that I think are present today and understands the plan moving forward. 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 I explained to Fern that (more content not included)... Normal [facility] Nbyo-2-Nxmdcuhkkyxrz, Son B-2 MICROGLOBUL 4.2 mg/L High 0.6-2.4 [facility] Comment on above: Result Comment: [employer] Immulite 2000 Immunochemiluminometric assay (ICMA) Values obtained with different assay methods or kits cannot be used interchangeably. Results cannot be interpreted as absolute evidence of the presence or absence of malignant disease. Performed at: [facility] [address] [id number] Business Functional Analyst: Deonte Schwartz MD, Phone: [phone] Performed By: #### L 100.0100, L501.9520, L500.4050, L500.4100 #### [facility] [address] [place], [address] CORNELIO + Protein Elect, Serumon 08-21-2025 Albumin [Mass/Vol] 4.0 g/dL Normal 2.9-4.4 [facility] Comment on above: Order Comment: N Performed By: #### L 100.0100, L501.9520, L500.4050, L500.4100 #### [facility] [address] [place], [address] Albumin/Globulin [Mass ratio] 1.4 {ratio} Normal 0.7-1.7 [facility] Comment on above: Order Comment: N Performed By: #### L 100.0100, L501.9520, L500.4050, L500.4100 #### [facility] [address] [place], [address] IAUJB-1-CTEL 0.2 g/dL Normal 0.0-0.4 [facility] Comment on above: Order Comment: N Performed By: #### L 100.0100, L501.9520, L500.4050, L500.4100 #### [facility] [address] [place], [address] PTEWT-0-KIUR 0.7 g/dL Normal 0.4-1.0 [facility] Comment on above: Order Comment: N Performed By: #### L 100.0100, L501.9520, L500.4050, L500.4100 #### [facility] [address] [place], [address] BETA GLOBULIN 1.0 g/dL Normal 0.7-1.3 [facility] Comment on above: Order Comment: N Performed By: #### L 100.0100, L501.9520, L500.4050, L500.4100 #### [facility] [address] [place], [address] GAMMA GLOBULIN 1.0 g/dL Normal 0.4-1.8 [facility] Comment on above: Order Comment: N Performed By: #### L 100.0100, L501.9520, L500.4050, L500.4100 #### [facility] [address] [place], [address] Globulin (S) [Mass/Vol] 2.9 g/dL Normal 2.2-3.9 [facility] Comment on above: Order Comment: N Performed By: #### L 100.0100, L501.9520, L500.4050, L500.4100 #### [facility] [address] [place], [address] CORNELIO RESULT,S Comment: Normal . [facility] Comment on above: Order Comment: N Result Comment: Pres ence of monoclonal protein is unclear at this time. Suggest repeat in 3 to 6 months if clinically indicated. Performed By: #### L 100.0100, L501.9520, L500.4050, L500.4100 #### [facility] [address] [place], [address] IMMUNOGLOB A QN 70 mg/dL Low 87-352 [facility] Comment on above: Order Comment: N Performed By: #### L 100.0100, L501.9520, L500.4050, L500.4100 #### [facility] [address] [place], [address] IMMUNOGLOB G QN 972 mg/dL Normal 586-1602 [facility] Comment on above: Order Comment: N Performed By: #### L 100.0100, L501.9520, L500.4050, L500.4100 #### [facility] [address] [place], [address] IMMUNOGLOB M QN 142 mg/dL Normal 26-217 [facility] Comment on above: Order Comment: N Performed By: #### L 100.0100, L501.9520, L500.4050, L500.4100 #### [facility] [address] [place], [address] M-Higinio Not Observed Normal Not Observed [facility] Comment on above: Order Comment: N Performed By: #### L 100.0100, L501.9520, L500.4050, L500.4100 #### [facility] [address] [place], [address] NOTE: Comment Normal . [facility] Comment on above: Order Comment: N Result Comment: Prot ein electrophoresis scan will follow via computer, mail, or environmental safety specialist delivery. Performed By: #### L 100.0100, L501.9520, L500.4050, L500.4100 #### [facility] [address] [place], [address] Protein [Mass/Vol] 6.9 g/dL Normal 6.0-8.5 [facility] Comment on above: Order Comment: N Performed By: #### L 100.0100, L501.9520, L500.4050, L500.4100 #### [facility] [address] [place], [address] Protein Electro.Ur-Randomon 08-21-2025 M-SPIKE,U Normal [facility] Comment on above: Result Comment: NOT OBSERVED Performed By: #### L 100.0100, L501.9520, L500.4050, L500.4100 #### [facility] [address] [place], [address] Ferritinon 08-19-2025 Ferritin [Mass/Vol] 630 ng/mL High 22-378 [facility] Comment on above: Performed By: #### L 3890.5000, L3600.4000, L503.0106, L3100.3425, L509.1000, L503.6030, L503.6550, L506.1001, L400.2010, L506.0200 #### [facility] [address] [place], [address] Folates,Serum (Folic Acid)on 08-19-2025 FOLATES,SERUM 35.00 ng/mL High 4.60-34.80 [facility] Comment on above: Order Comment: N Performed By: #### L 100.0100, L501.9520, L500.4050, L500.4100 #### [facility] [address] [place], [address] Iron+Iron Binding Capacityon 08-19-2025 TIBC 226 ug/dL Low 250-450 [facility] Comment on above: Performed By: #### L 3890.5000, L3600.4000, L503.0106, L3100.3425, L509.1000, L503.6030, L503.6550, L506.1001, L400.2010, L506.0200 #### [facility] [address] [place], [address] PTHINon 08-19-2025 PTH 91 pg/mL High 11-61 [facility] Comment on above: Performed By: #### L 3890.5000, L3600.4000, L503.0106, L3100.3425, L509.1000, L503.6030, L503.6550, L506.1001, L400.2010, L506.0200 #### [facility] [address] [place], [address] Urinalysis, Routine (Dipstic k)on 08-19-2025 BILIRUBIN URINE Negative Normal Negative [facility] Comment on above: Order Comment: Urine , Random Performed By: #### L 3890.5000, L3600.4000, L503.0106, L3100.3425, L509.1000, L503.6030, L503.6550, L506.1001, L400.2010, L506.0200 #### [facility] [address] [place], [address] Clarity (U) Clear Normal Clear [facility] Comment on above: Order Comment: Urine , Random Performed By: #### L 3890.5000, L3600.4000, L503.0106, L3100.3425, L509.1000, L503.6030, L503.6550, L506.1001, L400.2010, L506.0200 #### [facility] [address] [place], [address] Color (U) Yellow Normal Yellow [facility] Comment on above: Order Comment: Urine , Random Performed By: #### L 3890.5000, L3600.4000, L503.0106, L3100.3425, L509.1000, L503.6030, L503.6550, L506.1001, L400.2010, L506.0200 #### [facility] [address] [place], [address] GLUCOSE, UR Normal Normal Normal [facility] Comment on above: Order Comment: Urine , Random Performed By: #### L 3890.5000, L3600.4000, L503.0106, L3100.3425, L509.1000, L503.6030, L503.6550, L506.1001, L400.2010, L506.0200 #### [facility] [address] [place], [address] KETONE UR Negative Normal Negative [facility] Comment on above: Order Comment: Urine , Random Performed By: #### L 3890.5000, L3600.4000, L503.0106, L3100.3425, L509.1000, L503.6030, L503.6550, L506.1001, L400.2010, L506.0200 #### [facility] [address] [place], [address] LEUK ESTERASE Negative Normal Negative [facility] Comment on above: Order Comment: Urine , Random Performed By: #### L 3890.5000, L3600.4000, L503.0106, L3100.3425, L509.1000, L503.6030, L503.6550, L506.1001, L400.2010, L506.0200 #### [facility] [address] [place], [address] Nitrite Ql (U) Negative Normal Negative [facility] Comment on above: Order Comment: Urine , Random Performed By: #### L 3890.5000, L3600.4000, L503.0106, L3100.3425, L509.1000, L503.6030, L503.6550, L506.1001, L400.2010, L506.0200 #### [facility] [address] [place], [address] OCCULT BLOOD-UR 10 /ul Abnormal Negative [facility] Comment on above: Order Comment: Urine , Random Performed By: #### L 3890.5000, L3600.4000, L503.0106, L3100.3425, L509.1000, L503.6030, L503.6550, L506.1001, L400.2010, L506.0200 #### [facility] [address] [place], [address] pH UR 6.0 Normal 5.0 - 8.0 [facility] Comment on above: Order Comment: Urine , Random Performed By: #### L 3890.5000, L3600.4000, L503.0106, L3100.3425, L509.1000, L503.6030, L503.6550, L506.1001, L400.2010, L506.0200 #### [facility] [address] [place], [address] PROT DIPSTX 15 mg/dl Abnormal Negative [facility] Comment on above: Order Comment: Urine , Random Performed By: #### L 3890.5000, L3600.4000, L503.0106, L3100.3425, L509.1000, L503.6030, L503.6550, L506.1001, L400.2010, L506.0200 #### [facility] [address] [place], [address] SP.GR. DIPSTX 1.020 Normal 1.002-1.030 [facility] Comment on above: Order Comment: Urine , Random Performed By: #### L 3890.5000, L3600.4000, L503.0106, L3100.3425, L509.1000, L503.6030, L503.6550, L506.1001, L4.2010, L506.0200 #### [facility] [address] [place], [address] UROBILI Normal Normal Normal [facility] Comment on above: Order Comment: Urine , Random Performed By: #### L 3890.5000, L3600.4000, L503.0106, L3100.3425, L509.1000, L503.6030, L503.6550, L506.1001, L400.2010, L506.0200 #### [facility] [address] [place], [address] Vitamin B12on 08-19-2025 Cobalamin (Vitamin B12) [Mass/Vol] 1183 pg/mL High 180-914 [facility] Comment on above: Performed By: #### L 3890.5000, L3600.4000, L503.0106, L3100.3425, L509.1000, L503.6030, L503.6550, L506.1001, L400.2010, L506.0200 #### [facility] [address] [place], [place], [address] Vitamin D,25 Hydroxyon 08-19 Vitamin D 25-OH 48.6 ng/mL Normal 30-100 [facility] Comment on above: Result Comment: Daysi min D Status Deficiency: <20 ng/mL (50nmol/L) Insufficiency: 20-30 ng/mL (50-75 nmol/L) Sufficiency: 30-100 ng/mL (75-250 nmol/L) Toxicity: >100 ng/mL (>250 nmol/L) Performed By: #### L 3890.5000, L3600.4000, L503.0106, L3100.3425, L509.1000, L503.6030, L503.6550, L506.1001, L400.2011, L506.0200 #### [facility] [address] [place], [place], [address] Absolute lymphocyte countOrd ered By: Beatriz Jolly on 07-05-2025 Lymphocytes Auto (Unsp spec) [#/Vol] 2.58 10*3/uL 0.83-4.51 [facility] Absolute neutrophil countOrd ered By: Beatriz Jolly on 07-05-2025 Neutrophils (Bld) [#/Vol] 3.2 10*3/uL 2.0-7.7 [facility] Anion gap in Serum or Plasma Ordered By: Beatriz Jolly on 07-05-2025 Anion gap [Moles/Vol] 15 mmol/L 5- [facility] Automated lymphocyte count a s percentage of total leukocytesOrdered By: Beatriz Jolly on 07-05-2025 Lymphocytes/100 WBC Auto (Unsp spec) 40.2 % - [facility] BUN/creatinine ratioOrdered By: Beatriz Jolly on 07-05-2025 Urea nitrogen/Creatinine [Mass ratio] 18.8 mg/mg 10- [facility] Basophil percentageOrdered B y: Beatriz Jolly on 07-05-2025 Basophils/100 WBC (Bld) 0.3 % 0-1 [facility] Bilirubin, totalOrdered By: Beatriz Jolly on 07-05-2025 Bilirubin [Mass/Vol] 0.41 mg/dL 0.00-1.30 [facility] CBC W/Diff, Automatedon 06-15 Absolute Lymph 2.58 X10 3/uL Normal 0.83-4.51 [facility] Comment on above: Performed By: #### L 100.0100, L501.9520, L500.4050, L500.4100 #### [facility] [address] [place], [address] Absolute Neut 3.2 X10 3/uL Normal 2.0-7.7 [facility] Comment on above: Performed By: #### L 100.0100, L501.9520, L500.4050, L500.4100 #### [facility] [address] [place], [address] Basophils/100 WBC (Bld) 0.3 % Normal 0-1 [facility] Comment on above: Performed By: #### L 100.0100, L501.9520, L500.4050, L500.4100 #### [facility] [address] [place], [address] Eosinophils/100 WBC (Bld) 2.8 % Normal 0-5 [facility] Comment on above: Performed By: #### L 100.0100, L501.9520, L500.4050, L500.4100 #### [facility] [address] [place], [address] Erythrocyte distribution width (RBC) [Ratio] 15.3 % High 11.6-14.6 [facility] Comment on above: Performed By: #### L 100.0100, L501.9520, L500.4050, L500.4100 #### [facility] [address] [place], [address] Hematocrit (Bld) [Volume fraction] 31.8 % Low 37-47 [facility] Comment on above: Performed By: #### L 100.0100, L501.9520, L500.4050, L500.4100 #### [facility] [address] [place], [address] Hemoglobin (Bld) [Mass/Vol] 10.6 g/dL Low 12.0-15.0 [facility] Comment on above: Performed By: #### L 100.0100, L501.9520, L500.4050, L500.4100 #### [facility] [address] [place], [address] IG% 0.200 Normal 0.0-0.9 [facility] Comment on above: Result Comment: IG% - Immature Granulocytes (promyelocytes, myelocytes and metamyelocytes) > 1% indicates that a LEFT SHIFT is Present. Performed By: #### L 100.0100, L501.9520, L500.4050, L500.4100 #### [facility] [address] [place], [address] Lymphocytes/100 WBC (Bld) 40.2 % Normal 19-41 [facility] Comment on above: Performed By: #### L 100.0100, L501.9520, L500.4050, L500.4100 #### [facility] [address] [place], [address] MCH (RBC) [Entitic mass] 29.5 pg Normal 27.0-32.0 [facility] Comment on above: Performed By: #### L 100.0100, L501.9520, L500.4050, L500.4100 #### [facility] [address] [place], [address] MCHC (RBC) [Mass/Vol] 33.3 g/dL Normal 32-36 [facility] Comment on above: Performed By: #### L 100.0100, L501.9520, L500.4050, L500.4100 #### [facility] [address] [place], [address] MCV (RBC) [Entitic vol] 88.6 fL Normal 81-99 [facility] Comment on above: Performed By: #### L 100.0100, L501.9520, L500.4050, L500.4100 #### [facility] [address] [place], [address] Monocytes/100 WBC (Bld) 6.6 % Normal 0-10 [facility] Comment on above: Performed By: #### L 100.0100, L501.9520, L500.4050, L500.4100 #### [facility] [address] [place], [address] Neutrophils/100 WBC (Bld) 49.9 % Normal 47-70 [facility] Comment on above: Performed By: #### L 100.0100, L501.9520, L500.4050, L500.4100 #### [facility] [address] [place], [address] Nucleated RBC (Bld) [#/Vol] 0 10*3/uL Normal 0-5 [facility] Comment on above: Performed By: #### L 100.0100, L501.9520, L500.4050, L500.4100 #### [facility] [address] [place], [address] Platelet mean volume (Bld) [Entitic vol] 9.5 fL Normal 6.2-12.0 [facility] Comment on above: Performed By: #### L 100.0100, L501.9520, L500.4050, L500.4100 #### [facility] [address] [place], [address] Platelets (Bld) [#/Vol] 208 10*3/uL Normal 150-450 [facility] Comment on above: Performed By: #### L 100.0100, L501.9520, L500.4050, L500.4100 #### [facility] [address] [place], [address] RBC (Bld) [#/Vol] 3.59 10*6/uL Low 4.2-5.4 [facility] Comment on above: Performed By: #### L 100.0100, L501.9520, L500.4050, L500.4100 #### [facility] [address] [place], [address] RDW SD 50.1 fl High 35.1-43.9 [facility] Comment on above: Performed By: #### L 100.0100, L501.9520, L500.4050, L500.4100 #### [facility] [address] [place], [address] WBC (Bld) [#/Vol] 6.4 10*3/uL Normal 4.4-11.0 [facility] Comment on above: Performed By: #### L 100.0100, L501.9520, L500.4050, L500.4100 #### [facility] [address] [place], [address] Calculated very low density lipoprotein (VLDL) cholesterol measurementOrdered By: Beatriz Jolly on 07-05-2025 Calculated very low density lipoprotein (VLDL) cholesterol measurement 22 mg/dL 5-40 [facility] Carbon dioxide, total [Moles /volume] in Central venous bloodOrdered By: Beatriz Jolly on 07-05-2025 CO2 [Moles/Vol] 23.8 mmol/L 21.0-32.0 [facility] Chloride assayOrdered By: Dale Jolly on 07-05-2025 Chloride [Moles/Vol] 105 mmol/L 98-108 [facility] Comprehensive Metabolic Prof ilon 07-05-2025 Albumin [Mass/Vol] 4.7 g/dL Normal 3.4-4.8 [facility] Comment on above: Performed By: #### L 100.0100, L501.9520, L500.4050, L500.4100 #### [facility] [address] [place], [address] Albumin/Globulin [Mass ratio] 1.7 {ratio} Normal 0.9-2.4 [facility] Comment on above: Performed By: #### L 100.0100, L501.9520, L500.4050, L500.4100 #### [facility] [address] [place], [address] ALK PHOS 64 U/L Normal 35-104 [facility] Comment on above: Performed By: #### L 100.0100, L501.9520, L500.4050, L500.4100 #### [facility] [address] [place], [address] ALT [Catalytic activity/Vol] 12 U/L Normal <=34 [facility] Comment on above: Performed By: #### L 100.0100, L501.9520, L500.4050, L500.4100 #### [facility] [address] [place], [address] AST [Catalytic activity/Vol] 20 U/L Normal <=31 [facility] Comment on above: Performed By: #### L 100.0100, L501.9520, L500.4050, L500.4100 #### [facility] [address] [place], [address] Bilirubin [Mass/Vol] 0.41 mg/dL Normal 0.00-1.30 [facility] Comment on above: Performed By: #### L 100.0100, L501.9520, L500.4050, L500.4100 #### [facility] [address] [place], [address] BUN/CRE 18.8 RATIO Normal 10-20 [facility] Comment on above: Performed By: #### L 100.0100, L501.9520, L500.4050, L500.4100 #### [facility] [address] [place], [address] Calcium [Mass/Vol] 9.8 mg/dL Normal 7.6-11.0 [facility] Comment on above: Performed By: #### L 100.0100, L501.9520, L500.4050, L500.4100 #### [facility] [address] [place], [address] Chloride [Moles/Vol] 105 mmol/L Normal 98-108 [facility] Comment on above: Performed By: #### L 100.0100, L501.9520, L500.4050, L500.4100 #### [facility] [address] [place], [address] CO2 [Moles/Vol] 23.8 mmol/L Normal 21.0-32.0 [facility] Comment on above: Performed By: #### L 100.0100, L501.9520, L500.4050, L500.4100 #### [facility] [address] [place], [address] Creatinine [Mass/Vol] 1.68 mg/dL High 0.70-1.20 [facility] Comment on above: Performed By: #### L 100.0100, L501.9520, L500.4050, L500.4100 #### [facility] [address] [place], [address] GAP 15 Normal 5-15 [facility] Comment on above: Performed By: #### L 100.0100, L501.9520, L500.4050, L500.4100 #### [facility] [address] [place], [address] GFR/1.73 sq M.predicted among non-blacks MDRD (S/P/Bld) [Vol rate/Area] 33 mL/min/{1.73_m2} Low >60 [facility] Comment on above: Result Comment: mL/m in/1.73m2 CKD-EPI Creatinine Equation (2020) Performed By: #### L 100.0100, L501.9520, L500.4050, L500.4100 #### [facility] [address] [place], [address] Globulin (S) [Mass/Vol] 2.8 g/dL Normal 2.2-4.2 [facility] Comment on above: Performed By: #### L 100.0100, L501.9520, L500.4050, L500.4100 #### [facility] [address] [place], [address] Glucose [Mass/Vol] 94 mg/dL Normal 70-99 [facility] Comment on above: Performed By: #### L 100.0100, L501.9520, L500.4050, L500.4100 #### [facility] [address] [place], [address] Potassium [Moles/Vol] 3.7 mmol/L Normal 3.3-5.1 [facility] Comment on above: Performed By: #### L 100.0100, L501.9520, L500.4050, L500.4100 #### [facility] [address] [place], [address] Sodium [Moles/Vol] 143 mmol/L Normal 133-145 [facility] Comment on above: Performed By: #### L 100.0100, L501.9520, L500.4050, L500.4100 #### [facility] [address] [place], [address] T PROT 7.5 g/dL Normal 5.9-8.4 [facility] Comment on above: Performed By: #### L 100.0100, L501.9520, L500.4050, L500.4100 #### [facility] [address] [place], [address] Urea nitrogen [Mass/Vol] 32 mg/dL High 4-19 [facility] Comment on above: Performed By: #### L 100.0100, L501.9520, L500.4050, L500.4100 #### [facility] [address] [place], [address] Eosinophil percentageOrdered By: Beatriz Jolly on 07-05-2025 Eosinophils/100 WBC (Bld) 2.8 % 0-5 [facility] Erythrocyte distribution wid th ratioOrdered By: Beatriz Jolly on 07-05-2025 Erythrocyte distribution width (RBC) [Ratio] 15.3 % High 11.6-14.6 [facility] Erythrocyte distribution wid th standard deviationOrdered By: Beatriz Jolly on 07-05-2025 Erythrocyte distribution width (RBC) [Ratio] 50.1 fl High 35.1-43.9 [facility] Glomerular filtration rate ( GFR) estimation/1.73 sq m using serum, plasma, or whole bOrdered By: Beatriz Jolly on 07-05-2025 GFR/1.73 sq M.predicted among non-blacks MDRD (S/P/Bld) [Vol rate/Area] 33 mL/min/{1.73_m2} Low >60 [facility] Comment on above: mL/min/1.73m2 CKD-EP I Creatinine Equation (2020) Hematocrit Auto (Bld) [Volum e fraction]Ordered By: Beatriz Jolly on 07-05-2025 Hematocrit (Bld) [Volume fraction] 31.8 % Low 37-47 [facility] Hemoglobin measurementOrdere d By: Beatriz Jolly on 07-05-2025 Hemoglobin (Bld) [Mass/Vol] 10.6 g/dL Low 12.0-15.0 [facility] Immature granulocytes/100 WB C Auto (Bld)Ordered By: Beatriz Jolly on 07-05-2025 Immature granulocytes/100 WBC (Bld) 0.200 % 0.0-0.9 [facility] Comment on above: IG% - Immature Granu locytes (promyelocytes, myelocytes and metamyelocytes) > 1% indicates that a LEFT SHIFT is Present. LDL calc ser/plasOrdered By: Beatriz Jolly on 07-05-2025 Cholesterol in LDL [Mass/Vol] 154 mg/dL [facility] Comment on above: Dsjwwidcsh=414-929 m g/dL & Higher Domf=195 mg/dL or greaterFriedwald Equation for LDL-C Laboratory - Chemistry and C hemistry - challengeOrdered By: Beatriz Jolly on 07-05-2025 AST [Catalytic activity/Vol] 20 U/L <32 [facility] Lipid Profileon 07-05-2025 CHOL:HDL 3.26 Normal [facility] Comment on above: Performed By: #### L 100.0100, L501.9520, L500.4050, L500.4100 #### [facility] [address] [place], [place], [address] Cholesterol [Mass/Vol] 254 mg/dL High <=200 [facility] Comment on above: Result Comment: Chol esterol level, Desirable <200 mg/dL Borderline high cholesterol 200-239 mg/dL High cholesterol >=240 mg/dL Recommendations of the NCEP Adult Treatment Panel for the following risk-cutoff thresholds for the [place] population. Performed By: #### L 100.0100, L501.9520, L500.4050, L500.4100 #### [facility] [address] [place], [place], [address] Cholesterol in HDL [Mass/Vol] 78 mg/dL Normal [facility] Comment on above: Result Comment: Sola onal Cholesterol Education Program (NCEP) guidelines: <40 mg/dL: Low HDL-cholesterol (major risk factor for CHD) >= 60 mg/dL: High HDL-cholesterol (negative risk factor for CHD) HDL-cholesterol is affected by a number of factors, e.g. smoking, exercise, hormones, sex and age. Performed By: #### L 100.0100, L501.9520, L500.4050, L500.4100 #### [facility] [address] [place], [address] Cholesterol in LDL [Mass/Vol] 154 mg/dL Normal [facility] Comment on above: Result Comment: Bord kjhnhv=679-598 mg/dL Higher Fdre=469 mg/dL or greater Friedwald Equation for LDL-C Performed By: #### L 100.0100, L501.9520, L500.4050, L500.4100 #### [facility] [address] [place], [address] Cholesterol in VLDL [Mass/Vol] 22 mg/dL Normal 5-40 [facility] Comment on above: Performed By: #### L 100.0100, L501.9520, L500.4050, L500.4100 #### [facility] [address] [place], [address] Triglyceride [Mass/Vol] 111 mg/dL Normal [facility] Comment on above: Result Comment: The drugs N-Acetylcysteine and Metamizole may falsely depress this assay. Normal range: <150 mg/dL Borderline High: 150-199 mg/dL High: 200-499 mg/dL Very High: >500 mg/dL Performed By: #### L 100.0100, L501.9520, L500.4050, L500.4100 #### [facility] [address] [place], [address] MCV (mean corpuscular volume ) determinationOrdered By: Beatriz Jolly on 07-05-2025 MCV (RBC) [Entitic vol] 88.6 fL 81-99 [facility] Mean corpuscular hemoglobin (MCH) determinationOrdered By: Beatriz Jolly on 07-05-2025 MCH (RBC) [Entitic mass] 29.5 pg 27.0-32.0 [facility] Mean corpuscular hemoglobin concentration (MCHC) determinationOrdered By: Beatriz Jolly on 07-05-2025 MCHC (RBC) [Mass/Vol] 33.3 g/dL 32-36 [facility] Mean platelet volume determi nationOrdered By: Beatriz Jolly on 07-05-2025 Platelet mean volume (Bld) [Entitic vol] 9.5 fL 6.2-12.0 [facility] Monocyte percentageOrdered B y: Beatriz Jolly on 07-05-2025 Monocytes/100 WBC (Bld) 6.6 % 0-10 [facility] Neutrophil percentageOrdered By: Beatriz Jolly on 07-05-2025 Neutrophils/100 WBC (Bld) 49.9 % 47-70 [facility] Nucleated red blood cell per centageOrdered By: Beatriz Jolly on 07-05-2025 Nucleated RBC/100 WBC (Bld) [Ratio] 0 % 0-5 [facility] Platelet countOrdered By: Dale Jolly on 07-05-2025 Platelets (Bld) [#/Vol] 208 10*3/uL 150-450 [facility] Potassium measurement (mass/ volume)Ordered By: Beatriz Jolly on 07-05-2025 Potassium (Unsp spec) [Mass/Vol] 3.7 mmol/L 3.3-5.1 [facility] RBC Auto (Bld) [#/Vol]Ordere d By: Beatriz Jolly on 07-05-2025 RBC (Bld) [#/Vol] 3.59 10*6/uL Low 4.2-5.4 [facility] Screening total cholesterol/ high density lipoprotein (HDL) cholesterol ratioOrdered By: Beatriz Jolly on 07-05-2025 Cholesterol.total/Khadijah sterol in HDL [Mass ratio] 3.26 {ratio} [facility] Serum creatinine measurement (mass/volume)Ordered By: Beatriz Jolly on 07-05-2025 Creatinine [Mass/Vol] 1.68 mg/dL High 0.70-1.20 [facility] Serum globulin measurementOr dered By: Beatriz Jolly on 07-05-2025 Globulin (S) [Mass/Vol] 2.8 g/dL 2.2-4.2 [facility] Serum glucose measurement (m ass/volume)Ordered By: Beatriz Jolly on 07-05-2025 Glucose [Mass/Vol] 94 mg/dL 70-99 [facility] Serum or plasma alanine galaviz otransferase (ALT) measurementOrdered By: Beatriz Jolly on 07-05-2025 ALT [Catalytic activity/Vol] 12 U/L <35 [facility] Serum or plasma albumin sumit urement (mass/volume)Ordered By: Beatriz Jolly on 07-05-2025 Albumin [Mass/Vol] 4.7 g/dL 3.4-4.8 [facility] Serum or plasma albumin/glob ulin mass ratioOrdered By: Beatriz Jolly on 07-05-2025 Albumin/Globulin [Mass ratio] 1.7 {ratio} 0.9-2.4 [facility] Serum or plasma alkaline sravan sphatase measurementOrdered By: Beatriz Jolly on 07-05-2025 ALP [Catalytic activity/Vol] 64 U/L 35-104 [facility] Serum or plasma calcium sumit urement (mass/volume)Ordered By: Beatriz Jolly on 07-05-2025 Calcium [Mass/Vol] 9.8 mg/dL 7.6-11.0 [facility] Serum or plasma cholesterol in HDL measurement (mass/volume)Ordered By: Beatriz Jolly on 07-05-2025 Cholesterol in HDL [Mass/Vol] 78 mg/dL >40 [facility] Comment on above: National Cholesterol Education Program (NCEP) guidelines:<40 mg/dL: Low HDL-cholesterol (major risk factor for CHD)>= 60 mg/dL: High HDL-cholesterol (negative risk factor for CHD)HDL-cholesterol is affected by a number of factors, e.g. smoking, exercise, hormones, sex and age. Serum or plasma cholesterol measurement (mass/volume)Ordered By: Beatriz Jolly on 07-05-2025 Cholesterol [Mass/Vol] 254 mg/dL High <201 [facility] Comment on above: Cholesterol level, D esirable <200 mg/dLBorderline high cholesterol 200-239 mg/dLHigh cholesterol >=240 mg/dLRecommendations of the NCEP Adult Treatment Panel for the following risk-cutoff thresholds for the [place] population. Serum or plasma urea nitroge n measurement (mass/volume)Ordered By: Beatriz Jolly on 07-05-2025 Urea nitrogen [Mass/Vol] 32 mg/dL High 4-19 [facility] Sodium levelOrdered By: Shannon Jolly on 07-05-2025 Sodium [Moles/Vol] 143 mmol/L 133-145 [facility] TSH DL <= 0.005 mIU/L QnOrde red By: Beatriz Jolly on 07-05-2025 TSH Qn 0.145 uIU/mL Low 0.300-4.200 [facility] Thyroid Stim Hormone (TSH)on 07-05-2025 TSH 0.145 uIU/mL Low 0.300-4.200 [facility] Comment on above: Performed By: #### L 100.0100, L501.9520, L500.4050, L500.4100 #### [facility] [place], [address] Total proteinOrdered By: Sarkis Jolly on 07-05-2025 Protein [Mass/Vol] 7.5 g/dL 5.9-8.4 [facility] Triglycerides measurementOrd ered By: Beatriz Jolly on 07-05-2025 Triglyceride [Mass/Vol] 111 mg/dL <199 [facility] Comment on above: The drugs N-Acetylcy steine and Metamizole may falsely depress this assay. Normal range: <150 mg/dLBorderline High: 150-199 mg/dLHigh: 200-499 mg/dLVery High: >500 mg/dL White blood cell (WBC) count Ordered By: Beatriz Jolly on 07-05-2025 WBC (Bld) [#/Vol] 6.4 10*3/uL 4.4-11.0 [facility] Vital Signs Date Time Vital Sign Value Performing Clinician Faci lity 09-18-2025 13:51-0500 Body height 167.6 cm Elias Varma MD Work Phone: [facility] 09-18-2025 13:51-0500 Body mass index (BMI) [Ratio] 29.86 kg/m2 Elias Varma MD Work Phone: [facility] 09-18-2025 13:51-0500 Body weight 83.92 kg Elias Varma MD Work Phone: [facility] Encounters Encounter Date Encounter Type Care Provider Facility Start: 09-18-2025 End: 09-18-2025 Office outpatient new 45 minutes Elias Varma MD Work Phone: [facility] [place] Comment on above: Hallux rigidus of le ft foot (Primary Dx); Bunionette of left foot Start: 09-18-2025 End: 09-18-2025 ambulatory ABDULKADIR LUNA [facility] Start: 09-03-2025 End: 09-03-2025 Orders Only Abdulkadir Birdiethe [facility] PA-C Work Phone: [facility] [place] Comment on above: Left foot pain (Prim kymberly Dx) Start: 08-19-2025 End: 08-19-2025 ambulatory Beatriz Jolly Facility:[facility] Start: 07-10-2025 ambulatory Beatriz Mivalente Facility: [facility] Start: 07-05-2025 End: 07-05-[address] Beatriz Jolly MD Work Phone: -Laboratory Start: 07-05-2025 End: 07-05-[address] Beatriz Jolly MD -Laboratory Work Phone: Start: 07-05-2025 End: 07-05-2025 ambulatory Beatriz Jolly Facility:[facility] Plan of Treatment Date Care Activity Detail Author Start: 2030 RSV Immunization for Adults (1 - 1-dose 75+ series) RSV Immunization for Adults (1 - 1-dose 75+ series) [facility] Start: 12-11-2025 End: 12-11-2025 Patient encounter procedure 12/11/2025 2:00 PM EST Office Visit [facility] [place] [address] [facility] [address] [place] [id number] Abdulkadir Luna PA-C [address] [facility] [address] [place], [place] [id number] [facility] Start: 09-18-2025 End: 09-03-2026 XR Foot - left 3 Views XR foot 3+ views left Imaging Routine Left foot pain Expected: 09/18/2025, Expires: 09/03/2026 [facility] Work Phone: Comment on above: Expected: 09/18/2025 , Expires: 09/03/2026 Start: 09-18-2025 End: 09-18-2025 Patient encounter procedure 09/18/2025 1:30 PM EST Office Visit [facility] [place] [facility] [address] [facility] [address] [place] [address] Elias Varma MD [address] [facility] [address] [place], [place] [id number] [facility] Orthoped[facility] - [facility] Start: 07-15-2025 COVID-19 Vaccine ( season) COVID-19 Vaccine ( season) [facility] Start: 07-15-2025 Influenza vaccination Influenza Vacc ine (#1) [facility] Start: 2005 Pneumococcal Vaccine : 50+ Years (1 of 1 - PCV) Pneumococcal Vaccine: 50+ Years (1 of 1 - PCV) [facility] Start: 2005 Zoster Vaccines (1 o f 2) Zoster Vaccines (1 of 2) [facility] Start: 1995 Screening for malign ant neoplasm of breast Mammogram [facility] Start: 1974 DTaP/Tdap/Td Vaccine s (1 - Tdap) DTaP/Tdap/Td Vaccines (1 - Tdap) [facility] Start: 1973 Diabetes mellitus screening Diabetes Screening [facility] Start: 1973 Hepatitis C screening Hepatitis C Sc reening [facility] Start: 1967 Depression Screening Depression Scre ening [facility] Start: 1955 Lipid panel Lipid Panel [facility] Start: 1955 Screening for malign ant neoplasm of colon [facility] Start: 1955 Screening for osteoporosis Bone Density Scan [facility] Start: 1955 Thyroid stimulating hormone measurement TSH Level [facility] Payers Date Payer Category Payer Private Health Insurance CLI [id number] 2025 Self-pay 2020 Medicare [employer] [id number] 2020 Medicare [id number] Unknown [id number] Unknown [id number] Unknown [id number] Social History Date Type Detail Facility [facility] Work Phone: Start: 1955 Sex Assigned At Female [facility] Start: 1955 Sex assigned at Not on file [facility] Start: 08-22-2025 Sex Female (finding) [facility] Start: 09-18-2025 Gender identity Not on file [facility] Start: 09-18-[address] [facility] Never [facility] tobacco [facility] Start: 09-18-2025 Tobacco use and exposure Smokeless tobacco non-user [facility] Start: 09-18-2025 History of Social function [facility] Clinical Note 09-19-2025 Note Date & Type Note Facility 09-19-2025 Note SURGERY SCHEDULING S HEET Procedure: left 1st MTP fusion ([id number] TA) and Left 5th metatarsal osteotomy (10481 T4) CPT codes: see above Diagnosis: Hallux rigidus of left foot M20.22, M21.622 Location for Surgery: [facility] Schedule for: 2 hours, 11/26/2024@7:30PM, 5:30AM arrival Admission Type: Outpatient Medical Clearance: Yes with PCP/IMS NEED PAT: Yes in-person [facility] -11/12, 11/13, 11/14 or 11/15 in PM Antibiotic: Ancef 2g IV Anesthesia: Popliteal block (single shot) + General Position and Table type: Supine on Regular OR table Radiology: Mini C-arm Implants: [employer]/Orthohelix 1st MTP joint fusion plate and [employer] Prostep plates Equipment: Avani specials tray and TPS FU Abdulkadir: 12/11/2025 @2PM@wp Case #: [facility] Clinical Note 09-19-2025 Note Date & Type Note Facility 09-19-2025 Note SURGERY SCHEDULING S HEET Procedure: left 1st MTP fusion (61934 TA) and Left 5th metatarsal osteotomy (50943 T4) CPT codes: see above Diagnosis: No primary diagnosis found. Location for Surgery: [facility] Schedule for: 2 hours Admission Type: Outpatient Medical Clearance: Yes with PCP/IMS PAT: Yes in-person Antibiotic: Ancef 2g IV Anesthesia: Popliteal block (single shot) + General Position and Table type: Supine on Regular OR table Radiology: Mini C-arm Implants: [employer]/Orthohelix 1st MTP joint fusion plate and [employer]/Viri Prostep plates Equipment: Avani specials tray and TPS [facility] History of Present illness Narrative 09-18-2025 Elias Varma MD - 09/18/2025 1:30 PM EST Note Date & Type Note Facility 09-18-2025 History of Presen t illness Narrative Formatting of this note is different fro m the original. Images from the original note were not included. [facility] - [address] [facility] [address] Dept: [phone] Dept Fern Schulte 1955 [id number] 09/18/2025 HISTORY OF PRESENT ILLNESS: Fern is a 70 y.o. female here today for evaluation of her left foot Fern states the problem has been present for several years Fern states the problem started gradually with no injuries occurring. She reports a history of CP with her left side being affected. She had surgery to correct her bunion in the . She has had increased pain lately as well as rubbing in the shoe. She states that she has to wear many shoes because women shoes are too narrow and cause pain. She is having pain both over her great toe and her fifth toe. Fern has tried or has been treated with the following: modifying her activity level and avoiding those activities which aggravate the problem, NSAID's, and surgery. Review of Systems Surgical Risk Factors: Allergies to Metals or Latex: NO Have you been treated for a blood clot: NO Have you had a history of bleeding disorder: NO Have you had a history of Anesthetic problems: NO Do you have tendency to bruise easily: NO Do you experience prolonged or excessive bleeding from cuts or after surgery: NO General/Constitutional: General: no Cancer: NO Acute/Chronic Infections: NO HEENT/Neck: Problems with theThroat: NO Problems with the Eyes: NO Problems with the Ears: NO Problems with the Nose and Sinuses: NO Endocrine: Problems with Diabetes: NO Problems with Thyroid Disorder: NO Thorax: Problems with the Heart: NO Problems with the Lung: no Cardiovascular: Problems with Circulation: NO Problems with High Blood pressure: NO Gastrointestinal: Problems with Ulcers: NO Problems with the Liver: no Problems with Bowel Habits: NO Genitourinary: Problems with the Genitals: NO Urinary problems: NO Kidney disease or stones: NO Skin: Any general problems: NO Neurologic: Dizziness, blurred vision, headaches, problems with balance : NO Seizures or Stroke: NO Psychiatric: Emotional or Psychological disorders: NO Depression or Anxiety: no PAST MEDICAL HISTORY: Medical History[1] Allergies[2] PHYSICAL EXAM: Ht 1.676 m (5' 6) Wt 83.9 kg (185 lb) BMI 29.86 kg/m This is an age appropriate appearing female who is alert and oriented x 3. The patient appears well nourished. Psychiatric: The patient is able to verbalize normally and seems to have a good understanding of her situation. left lower extremity examination Lymphatic System: Swelling overlying the first metatarsophalangeal joint and the lateral forefoot Vascular: Dorsalis pedis pulse: 2+ Posterior tibial pulse: 2+ Capillary refill is less than 3 seconds Skin/nails: Normal appearance, warm and dry Hair growth absent on foot and toes Neurologic: Sensation intact to light touch throughout the foot and the ankle Musculoskeletal: The calf is nontender to palpation. ROM: Decreased range of motion of the first metatarsophalangeal joint Muscle strength testing: Anterior tibialis: 5/5 Posterior tibialis: 5/5 Peroneus brevis: 5/5 Peroneus longus: 5/5 Gastrocsoleus: 5/5 Tenderness: Tender to palpation overlying the first metatarsophalangeal joint. Spurs are palpable overlying the first metatarsophalangeal joint. Tender to palpation overlying the fifth metatarsal head over the plantar lateral aspect of the metatarsal. 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 There is a K wire within the head of the first metatarsal from previous osteotomy. The first metatarsophalangeal joint is in valgus alignment. Bunionette deformity of the fifth ray is also seen with overlying soft tissue swelling. Mild midfoot arthritis is also present. REVIEW OF RELATED PREVIOUS DOCUMENTATION: MRI report of the left ankle from 2020 was reviewed. LABORATORY RESULT INTERPRETATION: No labs were reviewed/No labs available for review DIAGNOSIS: Diagnosis Plan 1. Hallux rigidus of left foot 2. Bunionette of left foot MEDICAL DECISION MAKING: I had a discussion with Fern to make sure she has a good understanding of the diagnoses/issues that I think are present today and understands the plan moving forward. 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 I explained to Fern that I agree with shoewear modification and anti-inflammatories/Tylenol for discomfort for her arthritis. I explained that a custom insert would crowd the shoe further and make the dorsal osteophytes even more painful in her shoe. We talked about correcting her Left hallux rigidus and bunionette deformity with Left first metatarsophalangeal joint fusion and osteotomy of the fifth metatarsal. I explained the decision for surgery is hers alone. I explained that if she is functioning well with shoewear modification and taking occasional anti-inflammatories and Tylenol that is reasonable. I explained that she is exhausted other treatment options for these problems and if at some point she decides that she would like to have them corrected then surgery is a reasonable option.. I explained to Fern that this type of procedure is typically an outpatient procedure meaning she will be able to go home the day of surgery. Fern understands she will need a ride to and from the hospital and she will need someone to stay with her for a night after the surgery. If for some reason Fern needs to be admitted to the hospital following the procedure, we can admit if necessary. I explained Fern would need to be heel weightbearing and this would continue for up to 2 weeks following surgery. During this time Fern may need to use crutches, a walker, a wheelchair, a knee scooter or a combination of these to get around. I talked to Fern about the expected postoperative pain level following this type of procedure. I explained that each patient's perception of pain is different and she could experience more pain or less pain than the average patient and that is something that I cannot fully predict. I explained that she would receive a prescription for pain medication at the time of discharge from the hospital and may have an additional prescription for pain medications if necessary postoperatively. I explained that there are risks associated with narcotic usage and I will determine the need for additional medication based on severity of the injury and her symptoms. The risks of surgery were discussed including but not limited to the risks of medications given for surgery, the risk of blood loss during and after surgery that can lead to the need for blood products in certain situations, infection, damage to normal structures that can lead to intermediate school teacher problems of pain or dysfunction, wound healing complications, the possibility of nonunion or malunion for any bone procedures if they are required and late or chronic pain were also discussed. I explained to Fern that surgery can potentially make their condition worse or can lead to other unexpected problems that can have intermediate effects on their function or comfort. In addition potentially life threatening complications at the time of surgery and after surgery were discussed including but not limited to deep vein thrombosis, pulmonary embolism, myocardial infarction, stroke and . Fern understands that no guarantees with regard to surgical outcome can be given and none were implied. Fern was given the opportunity to ask questions and consider her options. Fern would like to think about the above mentioned procedure further and will call if she wishes to proceed. She is considering possibly having surgery in November or putting it off till after February when she has a trip to [place] to [facility]. Follow up for PRN and will call to schedule surgery. Electronically signed by Elias Varma MD [facility] Department of Orthopedic surgery 09/18/2025 2:30 PM Voice recognition was used for portions of this note and although it was reviewed prior to signing some incorrect words or phrases could be present. [1] No past medical history on file. [2] No Known Allergies documented in this encounter [facility] Evaluation note Note Date & Type Note Facility Evaluation note No assessment information availa [facility] Work Phone: Evaluation note Note Date & Type Note Facility Evaluation note Diagnosis Left foot pain- Primary Pain in soft tissues of limb documented in this encounter [facility] Evaluation note Note Date & Type Note Facility Evaluation note Diagnosis Hallux rigidus of left foot- Primary Bunionette of left foot documented in this encounter [facility] Reason for referral (narrative) Note Date & Type Note Facility Reason for referral (narrative) No reason for referral information available [facility] Work Phone: Summary Purpose Family History No Family History Records FoundNo Family History Records Found Advance Directives No Advanced Directives Records FoundNo Advanced Directives Records Found Additional Source Comments [...] ized section and content) DATE CREATED AUTHOR 09/08/2025 [facility] DATE CREATED AUTHOR AUTHOR'S ORGANIZ ATION 09/23/2025 [facility] Reason for Visit (unrecogniz ed section and content) Reason Comments New Patient Left foot FOR RECORDS PERTAINING TO PATIENTS WHO ARE [...] BE BASED ON THE PRIMARY CLINICAL RECORDS. [email or web address] provides no warranty or guarantee of the accuracy or completeness of information in this document.
[2025-11-01 15:05] LABS: Hematocrit 32.5 % (37-47); Hemoglobin 10.8 g/dL (12.0-15.0); Immature Granulocytes Count 0.000 X10^3/uL (0.0-0.0); Mean Corp Hgb Conc 33.2 g/dL (32-36); Mean Corpuscular Volume 88.3 fL (81-99); Mean Platelet Vol. 10.0 fl (6.2-12.0); NRBC Flagged by Analyzer 0 % (0-5); Platelet Count 231 K/mm3 (150-450); RBC Distribution Width CV 15.9 % (11.6-14.6); RBC Distribution Width SD 51.5 fl (35.1-43.9); Red Blood Count 3.68 M/mm3 (4.2-5.4); White Blood Count 5.4 K/mm3 (4.4-11.0)
[2025-11-01 15:43] LABS: AST(SGOT) 22 U/L (<=31); Alanine Aminotransfer ALT/SGPT 12 U/L (<=34); Albumin, Serum 4.5 g/dL (3.4-4.8); Alkaline Phosphatase 70 U/L (35-104); Anion Gap 12 (5-15); BUN 29 mg/dL (4-19); BUN/Creat Ratio 15.7 RATIO (10-20); Calcium,Total 9.5 mg/dL (7.6-11.0); Carbon Dioxide 24.3 mmol/L (21.0-32.0); Chloride 106 mmol/L (98-108); Globulin 2.4 g/dL (2.2-4.2); Glucose 106 mg/dL (70-99); Potassium 3.4 mmol/L (3.3-5.1)
== END | disposition home or self-care (01) ==
PROVIDERS: PCP Family Medicine; Visit Provider Family Medicine
DX: E03.9 Hypothyroidism, unspecified (principal); N18.32 Chronic kidney disease, stage 3b; I12.9 Hypertensive chronic kidney disease with stage 1 through stage 4 chronic kidney disease, or unspecified chronic kidney disease
CPT/HCPCS: 36415; 80053; 84443; 85025